=== PATIENT | female | born 1965 | race African-American/Black ===

== ENCOUNTER 2018-11-20 18:33 | Observation (INO) ==
[2018-11-20 19:18] LABS: Basophils % 0.6 % (0.1-2.0); Eosinophils # 0.2 K/mm3 (0.0-0.4); Eosinophils % 2.8 % (0.1-12.0); Hematocrit 37.8 % (37.0-47.0); Hemoglobin 12.4 g/dL (12.2-16.2); Lymphocytes # 2.1 K/mm3 (0.7-4.5); Lymphocytes % 30.1 % (10-50); Mean Corpuscular HGB Conc 32.8 g/dL (31.8-35.4); Mean Corpuscular Volume 89.8 fl (81-99); Mean Platelet Volume 8.8 fl (7.4-10.4); Monocytes # 0.4 K/mm3 (0.1-1.0); Monocytes % 5.6 % (1.7-9.3); Neutrophils # 4.2 K/mm3 (1.8-7.8); Neutrophils % 60.8 % (37.0-80.0); Platelet Count 235 K/mm3 (142-424); Red Blood Count 4.21 M/mm3 (4.20-5.40); White Blood Count 6.9 K/mm3 (4.8-10.8)
[2018-11-20 19:27] LABS: Albumin Level 3.6 gm/dL (3.4-5.0); Anion Gap 16.5 mEq/L (5-15); Bilirubin,Total 0.8 mg/dL (0.2-1.0); Calcium 9.2 mg/dL (8.5-10.1); Globulin 3.6 gm/dl (1.3-3.2); Total Protein,Serum 7.2 gm/dL (6.4-8.2)
--- NOTE | 2018-11-20 19:38 | Emergency Department Note ---
ED Disposition Clinical Impression: Tibial plateau fracture Qualifiers: Encounter type: initial encounter Fracture type: closed Laterality: left Qualified Code(s): S82.142A - Displaced bicondylar fracture of left tibia, initial encounter for closed fracture Disposition: Admitted As Inpatient Condition on Discharge: Fair Referrals: Simona Mckenzie APRN [Primary Care Provider] - - Critical Care Critical Care Time: No Attestation: On 11/20/18, the high probability of a clinically significant, sudden or life threatening deterioration of the following system(s) required my full and direct attention, intervention and personal management. The time I documented below is in addition to time spent performing reported procedures but includes the following listed in this critical care notation. Medical Decision Making - True Inquiry Pt receiving controlled substance: No Vital Signs: 11/20/18 18:31 11/20/18 20:14 Temperature 98.3 F Temperature Source Oral Pulse Rate [Left Brachial] 111 H 105 H Pulse Rate [Right Brachial] 84 Respiratory Rate 18 20 Blood Pressure [Left Arm] 128/71 145/80 H Blood Pressure [Right Arm] 138/71 Blood Pressure Mean [Left Arm] 90 101 Blood Pressure Mean [Right Arm] 93 Blood Pressure Source [Right Arm] Automatic Cuff Blood Pressure Position [Right Arm] Sitting 02 Sat by Pulse Oximetry 95 98 Oxygen Delivery Method Room Air Room Air - Lab Data Lab Results 11/20/18 18:40: WBC 6.9, RBC 4.21, Hgb 12.4, Hct 37.8, MCV 89.8, MCH 29.4, MCHC 32.8, RDW 13.0, Plt Count 235, MPV 8.8, Neut % (Auto) 60.8, Lymph % (Auto) 30.1, [place] % (Auto) 5.6, Eos % (Auto) 2.8, Baso % (Auto) 0.6, Neut # (Auto) 4.2, Lymph # (Auto) 2.1, [place] # (Auto) 0.4, Eos # (Auto) 0.2, Baso # (Auto) 0.0 11/20/18 18:40: Sodium 140, Potassium 3.5, Chloride 102, Carbon Dioxide 25, Anion Gap 16.5 H, BUN 20 H, Creatinine 1.12 H, Estimated Creat Clear 59, Estimated GFR 51 L, Est GFR ( Amer) 62, Glucose 137 H, Calcium 9.2, Total Bilirubin 0.8, AST 33, ALT 38, Alkaline Phosphatase 50, Total Protein 7.2, Albumin 3.6, Globulin 3.6 H, Albumin/Globulin Ratio 1.0 L Result diagrams: 11/20/18 18:40 11/20/18 18:40 - Physician Consults Physician Consulted: Tom Time: 19:50 Reason -: Orthopedic Eval/Care Comment/Response: See if PCP will admit for medical clearance, care epi servin, surgery on Wednesday Additional Consult: John Camp Time: 20:00 Reason -: Admission Comment/Response: Agrees to admit the patient to the hospital. We discussed the patient's clinical information, including history, exam, laboratory and radiology results and ED course. Per hospital procedure, I will write temporary bridge inpatient orders on the patient. Medical Decision Narrative: Discussed treatment plan with Dr. Phoenix and Dr. Min. Logistically, the patient would have to come back tomorrow for orthopedic appointment and also come back on Wednesday for surgery, and has not been able to get in and out of her mmxpir-[id number]'s residence without fire department help and unable to come to the hospital without an ambulance. She will therefore be admitted for medical clearance tomorrow with surgery expected on Wednesday. Care management consult. General Adult HPI - General Chief complaint: PAIN Stated complaint: continued leg pain s/p fall Time Seen by Provider: 11/20/18 19:38 Mode of Arrival: EMS Limitations: No Limitations Description of Symptoms (Recalled from ER Triage Doc. by RN): pt fell on wednesday, was seen in ed and subsequently treated for a tib/fib plateau fx and was supposed to follow with ortho on wednesday. pt's called multiple times that evening asking why we couldn't have just admitted her because due to her size she was unable to navigate fully with crutches. today ems was called for continuing discomfort and decr mobility. - History of Present Illness HPI narrative: Patient arrives by ambulance complaining of left leg swelling and pain. She was seen in this emergency department 2 days ago and diagnosed with a left tibial plateau fracture after a fall. Discharged home on crutches and knee immobilizer and was supposed to see Dr. Phoenix tomorrow for evaluation and to have surgery on Wednesday. Patient has had to move in with her [id number] because her residents had 3 floors. Her sister's residence still has 6 steps getting up into the first level and she has had to call the fire department for assistance getting up and down steps. Her is concerned because she has increased swelling of her legs since she was here. She says that she has pain when she tries to get up and down on crutches and is having quite a bit of difficulty getting back and forth to the bathroom and back into bed. She denies having any pain at rest presently. No numbness or tingling of her foot. - Related Data Home Medications Medication Instructions Recorded Confirmed Ertugliflozin Pidolate [Steglatro] 15 mg PO DAILY 11/18/18 11/20/18 Glimepiride 4 mg PO DAILY 11/18/18 11/20/18 Lisinopril [Lisinopril 5mg 5 mg PO DAILY 11/18/18 11/20/18 Tablet] Metformin HCl [Metformin 1000mg 1,000 mg PO DAILY 11/18/18 11/20/18 Tablets] hydroCHLOROthiazide [HCTZ 25mg 25 mg PO DAILY 11/18/18 11/20/18 tab] Previous Rx's Medication Instructions Recorded Hydrocod/Acet 5/325 mg [[place] 1 tab PO Q6HP PRN #10 tab 11/18/18 5/325mg tablet] Allergies Allergy/AdvReac Type Severity Reaction Status Date / Time No Known Allergies Allergy Verified 11/18/18 22:05 [facility] History - Hepatitis A Screen Drug use history?: No High risk sexual behaviors?: No History of sexually transmitted infection?: No Currently employed?: No Childcare worker?: No Do you have indoor plumbing?: Yes Do you have electricity?: Yes Attestation statement:: This patient has been screened for Hepatitis A risk factors. I have reviewed the patient's past medical history: Yes Medical History: Reports:: Diabetes Mellitus Type 2 - Social History Educational Level: Completed High School Smoking Status: Unknown if ever smoked Alcohol Intake: never Occupational Status: employed Household Members: spouse ROS Obtained: Yes Systems reviewed as appropriate & no additional complaints - Constitutional Constitutional: Denies fever(s) - Musculoskeletal Musculoskeletal: Reports as per HPI - Neurologic Neurologic: Denies numbness, Denies weakness Physical Exam - General General appearance: alert, in no apparent distress - Head Head exam: atraumatic, normocephalic - Eye Eye exam: Present: normal appearance, EOMI - ENT ENT exam: Present: mucous membranes moist - Neck Neck exam: Present: normal inspection, trachea midline - Chest Chest inspection: Present: normal inspection, symmetric chest wall rise - Respiratory Respiratory exam: Present: normal lung sounds bilaterally. Absent: respiratory distress - Cardiovascular Cardiovascular exam: Present: regular rate, normal rhythm, normal heart sounds - Abdominal Exam Abdominal exam: Present: soft - Extremities Exam Extremities exam: Present: normal capillary refill - Neurological Exam Neurological exam: Present: alert, oriented X3. Absent: motor sensory deficit - Psychiatric Psychiatric exam: Present: normal affect, normal mood - Skin Skin exam: Present: warm, dry - Other Other exam information: Left knee immobilizer is on, but approximately it only extends to the suprapatellar area distally goes down to her ankle. It is it is not really immobilizing her knee. Mild edema of left knee and leg. Minimal ecchymosis around the lateral aspect of the knee. Tenderness in that location as well as the proximal pretibial area. Normal pulses, capillary refill, sensation distally. Calf is soft. All muscle compartments are soft. She can wiggle her toes and dorsiflex and plantar flex the foot without any pain. She is having no pain at rest as long as it is not touched. No signs of compartment syndrome. Skin is intact.
--- NOTE | 2018-11-21 07:05 | History & Physical Report ---
*Admission Date: 11/20/18 *Chief complaint: Left leg pain *History of present illness: 53-year-old female with diabetes and hypertension presented to the emergency department again yesterday with left leg pain. Patient had been seen 2 days prior and diagnosed with a tibial plateau fracture. At that time orthopedic evaluation had been arranged. Patient returned yesterday because of difficulties getting to and from home. Patient struggled with use of crutches and her knee immobilizer. She return to the emergency department and was subsequently admitted for observation with planned surgery on Wednesday. [facility] History I have reviewed the patient's past medical history: Yes Medical History: Reports:: Diabetes Mellitus Type 2, Hypertension Denies:: Cancer, MRSA *Have you ever received a pneumonia vaccine?: No *Have you received a flu vaccine this season?: No Other Medical History: Reports: Arthritis Other Surgeries: Yes: Hysterectomy-Partial, Other (Csection) Amputation: No Fractures: Yes (tibia) - *Social History Educational Level: Attended College Smoking Status: Unknown if ever smoked Alcohol Intake: never *Occupational Status:: employed Household Members: spouse *Travel in the last 8 weeks: None Family Hx:: Hypertension Review of Systems - Constitutional Denies body ache(s), Denies chills, Denies fever(s), Denies lack of energy - ENT Denies abnormal hearing - *Cardiovascular Denies chest pain, Denies chest pain at rest, Denies chest pain with activity, Denies excessive sweating, Denies shortness of breath with activity - *Respiratory Denies chest congestion, Denies cough, Denies shortness of breath - *Gastrointestinal Denies abdominal pain - *Musculoskeletal Reports abnormal walking - *Neurologic Reports abnormal walking, Denies numbness, Denies weakness - Endocrine Denies cold intolerance - Hematologic/Lymphatic Denies easy bleeding, Denies easy bruising Meds Home Medications Medication Instructions Recorded Confirmed Type Ertugliflozin Pidolate [Steglatro] 15 mg PO DAILY 11/18/18 11/20/18 History Glimepiride 4 mg PO DAILY 11/18/18 11/20/18 History Hydrocod/Acet 5/325 mg [[place] 1 tab PO Q6HP PRN #10 tab 11/18/18 11/20/18 Rx 5/325mg tablet] Lisinopril [Lisinopril 5mg 5 mg PO DAILY 11/18/18 11/20/18 History Tablet] Metformin HCl [Metformin 1000mg 1,000 mg PO DAILY 11/18/18 11/20/18 History Tablets] hydroCHLOROthiazide [HCTZ 25mg 25 mg PO DAILY 11/18/18 11/20/18 History tab] Allergies Allergy/AdvReac Type Severity Reaction Status Date / Time No Known Allergies Allergy Verified 11/18/18 22:05 Exam Vital signs and Labs for Last 24 Hours: Temp Pulse Resp BP Pulse Ox 98.2 F 98 H 18 134/92 H 98 11/21/18 03:48 11/21/18 03:48 11/21/18 03:48 11/21/18 03:48 11/21/18 03:48 Laboratory Results - last 24 hr 11/20/18 18:40: WBC 6.9, RBC 4.21, Hgb 12.4, Hct 37.8, MCV 89.8, MCH 29.4, MCHC 32.8, RDW 13.0, Plt Count 235, MPV 8.8, Neut % (Auto) 60.8, Lymph % (Auto) 30.1, [place] % (Auto) 5.6, Eos % (Auto) 2.8, Baso % (Auto) 0.6, Neut # (Auto) 4.2, Lymph # (Auto) 2.1, [place] # (Auto) 0.4, Eos # (Auto) 0.2, Baso # (Auto) 0.0 11/20/18 18:40: Sodium 140, Potassium 3.5, Chloride 102, Carbon Dioxide 25, Anion Gap 16.5 H, BUN 20 H, Creatinine 1.12 H, Estimated Creat Clear 59, Estimated GFR 51 L, Est GFR ( Amer) 62, Glucose 137 H, Calcium 9.2, Total Bilirubin 0.8, AST 33, ALT 38, Alkaline Phosphatase 50, Total Protein 7.2, Albumin 3.6, Globulin 3.6 H, Albumin/Globulin Ratio 1.0 L I & O for Last 24 hours: Intake & Output 11/18/18 11/19/18 11/20/18 11/21/18 11:59 11:59 11:59 11:59 Output Total 350 / 350 Balance -350 / -350 Weight 255 lb 5 oz - Constitutional no acute distress - *Routine HEENT Exam Head: Present: normocephalic Eye: Present: PERRL ENT: Present: mucous membranes dry - *Routine Neck Exam Present: supple, full ROM. Absent: JVD, carotid bruit - *Routine Respiratory Exam Present: CTA bilaterally. Absent: rales, rhonchi, wheezes - *Routine Cardiovascular Exam Present: RRR, Normal S1, Normal S2. Absent: murmur - *Routine Abdominal Exam Present: soft, normoactive bowel sounds. Absent: tenderness, distended, rebound - *Routine Extremities Exam Present: edema, pulses intact Comments: Left knee immobilized. Intact range of motion in the left ankle. Sensation intact in the left foot. Palpable pulse in left foot Assessment and Plan (1) Tibial plateau fracture, left Current visit: No Status: Acute Qualifiers: Encounter type: subsequent encounter Fracture type: closed Qualified Code(s): S82.142A - Displaced bicondylar fracture of left tibia, initial encounter for closed fracture Category: Medical Code(s): S82.142A - Displaced bicondylar fracture of left tibia, initial encounter for closed fracture (2) Diabetes mellitus Current visit: Yes Status: Acute Qualifiers: Diabetes mellitus type: type 2 Diabetes mellitus longterm insulin use: without watermelon inspector use Diabetes mellitus complication status: without complication Qualified Code(s): E11.9 - Type 2 diabetes mellitus without complications Category: Medical Code(s): E11.9 - Type 2 diabetes mellitus without complicati ons (3) Hypertension Current visit: Yes Status: Acute Qualifiers: Hypertension type: essential hypertension Qualified Code(s): I10 - Essential (primary) hypertension Category: Medical Code(s): I10 - Essential (primary) hypertension - Assessment and plan all Dx Assessment and Plan for all problems:: 1. EKG this morning 2. Lovenox 40 mg subcu daily for DVT prophylaxis 3. Patient is low cardiac risk for perioperative complications. 4. Home medications ordered
--- NOTE | 2018-11-21 07:27 | Pharmacy Consult Notes ---
[facility] Pharmacy VTE Monitoring - Patient Demographics Admission date: 11/20/18 Report Date: 11/21/18 Time: 07:27 Allergies/Adverse Reactions: Patient Allergies No Known Allergies Allergy (Verified 11/18/18 22:05) Height: 1.73 m Weight: 115.808 kg Patient Problems: Current Active Problems Tibial plateau fracture (Acute) Diabetes mellitus (Acute) Hypertension (Acute) - VTE Risk Labs: VTE Related Lab Results Hgb 12.4 g/dL (12.2-16.2) 11/20/18 18:40 Hct 37.8 % (37.0-47.0) 11/20/18 18:40 Plt Count 235 K/mm3 (142-424) 11/20/18 18:40 BUN 20 mg/dL (7-18) H 11/20/18 18:40 Creatinine 1.12 mg/dL (0.55-1.02) H 11/20/18 18:40 Estimated Creat Clear 59 mL/min (50-200) 11/20/18 18:40 Was VTE Risk Assessment Performed: Yes VTE Score: 3 VTE Risk Level: Low Risk - Prophylaxis VTE Prophylaxis Ordered?: Yes Types of VTE Prophylaxis: Pharmacological Pharmacologic Type: Enoxaparin - VTE Diagnosis Confirmed Treatment or plan recommended: Continue Current Treatment
--- NOTE | 2018-11-21 13:21 | Consult Report ---
*Admission Date: 11/20/18 *Reason for consult:: L tibial plateau fracture *History of present illness: 53-year-old female who sustained an injury to the L lower extremity on 11/18/2018 when she fell from a standing height. She was seen in the ER that evening, where a tibial plateau fracture was diagnosed on x-ray. I was notified at that time, and outpatient follow-up on 11/21/[address] scan was performed of the L knee per my request, and she was placed into an immobilizer and given crutches. She returned to the ER last night for complaints of persistent pain and increased swelling in the leg, in addition to difficulty with mobilization at home. She has been staying with a cannzy-vc-skj, whose home is more accessible than her own, but is still having difficulty with transportation. An ambulance had to be called to transport her to the hospital last night, and EMS personnel were needed to extricate her from the home. She reports pain over the lateral aspect of the L knee, no back/hip/ankle pain, no numbness or tingling in the LLE. She has been seen in the past by the lymphedema clinic per the patient, but it is unclear if she's been diagnosed with lymphedema or not. She works at [employer] and is sitting for most of her work. Review of Systems - Review of Systems Review of systems:: pertinent systems reviewed and negative unless documented below - *Neurologic Reports abnormal walking, Denies abnormal hearing, Denies numbness, Denies weakness [facility] History I have reviewed the patient's past medical history: Yes Medical History: Reports:: Diabetes Mellitus Type 2, Hypertension Denies:: Cancer, MRSA *Have you ever received a pneumonia vaccine?: No *Have you received a flu vaccine this season?: No Other Medical History: Reports: Arthritis Other Surgeries: Yes: Hysterectomy-Partial, Other (Csection) Amputation: No Fractures: Yes (tibia) - *Social History Educational Level: Attended College Smoking Status: Unknown if ever smoked Alcohol Intake: never *Occupational Status:: employed Household Members: spouse *Travel in the last 8 weeks: None Family Hx:: Hypertension Meds Home Medications Medication Instructions Recorded Confirmed Type Ertugliflozin Pidolate [Steglatro] 15 mg PO DAILY 11/18/18 11/20/18 History Glimepiride 4 mg PO DAILY 11/18/18 11/20/18 History Hydrocod/Acet 5/325 mg [[place] 1 tab PO Q6HP PRN #10 tab 11/18/18 11/20/18 Rx 5/325mg tablet] Lisinopril [Lisinopril 5mg 5 mg PO DAILY 11/18/18 11/20/18 History Tablet] Metformin HCl [Metformin 1000mg 1,000 mg PO BID 11/18/18 11/21/18 History Tablets] hydroCHLOROthiazide [HCTZ 25mg 25 mg PO DAILY 11/18/18 11/20/18 History tab] Allergies Allergy/AdvReac Type Severity Reaction Status Date / Time No Known Allergies Allergy Verified 11/18/18 22:05 Exam Vital signs and Labs for Last 24 Hours: Temp Pulse Resp BP Pulse Ox 98.7 F 107 H 18 131/82 98 11/21/18 07:46 11/21/18 07:46 11/21/18 07:46 11/21/18 07:46 11/21/18 07:46 Laboratory Results - last 24 hr 11/20/18 18:40: WBC 6.9, RBC 4.21, Hgb 12.4, Hct 37.8, MCV 89.8, MCH 29.4, MCHC 32.8, RDW 13.0, Plt Count 235, MPV 8.8, Neut % (Auto) 60.8, Lymph % (Auto) 30.1, [place] % (Auto) 5.6, Eos % (Auto) 2.8, Baso % (Auto) 0.6, Neut # (Auto) 4.2, Lymph # (Auto) 2.1, [place] # (Auto) 0.4, Eos # (Auto) 0.2, Baso # (Auto) 0.0 11/20/18 18:40: Sodium 140, Potassium 3.5, Chloride 102, Carbon Dioxide 25, Anion Gap 16.5 H, BUN 20 H, Creatinine 1.12 H, Estimated Creat Clear 59, Estimated GFR 51 L, Est GFR ( Amer) 62, Glucose 137 H, Calcium 9.2, Total Bilirubin 0.8, AST 33, ALT 38, Alkaline Phosphatase 50, Total Protein 7.2, Albumin 3.6, Globulin 3.6 H, Albumin/Globulin Ratio 1.0 L 11/21/18 11:22: POC Glucose 78 I & O for Last 24 hours: Intake & Output 11/19/18 11/20/18 11/21/18 11/22/18 11:59 11:59 11:59 11:59 Intake Total 360 / 360 Output Total 350 / 350 Balance Weight 255 lb 5 oz - Constitutional no acute distress, morbidly obese - *Routine HEENT Exam Head: Present: normocephalic Eye: Present: EOMI ENT: Present: mucous membranes moist - *Routine Respiratory Exam Present: CTA bilaterally - *Routine Cardiovascular Exam Present: RRR - *Routine Abdominal Exam Present: soft. Absent: tenderness - *Routine Extremities Exam Comments: LLE no gross deformity, knee immobilizer in place significantly tender over the lateral aspect of L knee, particularly L proximal tibia no skin lesions: no ecchymosis, abrasions, lacerations or erythema L calf soft, non-tender +DF/PF/EHL LLE palpable pedal pulses LLE SILT distally LLE in all distributions - *Routine Skin Exam Present: intact. Absent: erythema, ecchymosis - *Routine Neurological Exam Present: alert, oriented X3, moving all extremities, normal tone, hearing grossly intact, normal speech. Absent: sensory deficit, motor deficit, altered mental status Results - Labs Result Diagrams: 11/20/18 18:40 11/20/18 18:40 Labs: Abnormal lab results 11/20/18 Range/Units 18:40 Anion Gap 16.5 H (5-15) mEq/L BUN 20 H (7-18) mg/dL Creatinine 1.12 H (0.55-1.02) mg/dL Estimated GFR 51 L (>60) ml/min Glucose 137 H (74-106) mg/dL Globulin 3.6 H (1.3-3.2) gm/dl Albumin/Globulin Ratio 1.0 L (1.1-1.8) H & H 11/20/18 Range/Units 18:40 Hgb 12.4 (12.2-16.2) g/dL Hct 37.8 (37.0-47.0) % All other labs normal. - Diagnostic results Knee x-ray: image reviewed (mildly displaced lateral tibial plateau fx L proximal tibia) Knee CT: image reviewed (L lateral tibial plateau fx ) Assessment and Plan (1) Tibial plateau fracture, left Current visit: No Status: Acute Qualifiers: Encounter type: subsequent encounter Fracture type: closed Qualified Code(s): S82.142A - Displaced bicondylar fracture of left tibia, initial encounter for closed fracture Category: Medical Code(s): S82.142A - Displaced bicondylar fracture of left tibia, initial encounter for closed fracture (2) Diabetes mellitus Current visit: Yes Status: Acute Qualifiers: Diabetes mellitus type: type 2 Diabetes mellitus local intermodal truck driver insulin use: without local intermodal truck driver use Diabetes mellitus complication status: without complication Qualified Code(s): E11.9 - Type 2 diabetes mellitus without complications Category: Medical Code(s): E11.9 - Type 2 diabetes mellitus without complications (3) Hypertension Current visit: Yes Status: Acute Qualifiers: Hypertension type: essential hypertension Qualified Code(s): I10 - Essential (primary) hypertension Category: Medical Code(s): I10 - Essential (primary) hypertension - Assessment and plan all Dx Assessment and Plan for all problems:: 53yo F with L tibial plateau fracture; Schatzker II -- NWB LLE, up ad melissa with assistance -- elevate LLE, ice L knee frequently -- to OR tomorrow for ORIF L tibial plateau fracture -- will have PT assess; patient has difficulty with crutches, would like them to work on crutch training + fit patient for T-scope brace, which she will need post-operatively. Will also have them assess post-op for placement needs. -- ok to give lovenox today, but hold tonight for OR tomorrow -- SCD RLE, encourage IS -- medical management/clearance per Dr. Camp
--- NOTE | 2018-11-22 07:03 | Progress Note ---
Internal Medicine - PN: Subj *Date: 11/22/18 *Time: 07:00 Interval history: Patient has no complaints this morning. She worked with physical therapy yesterday to ambulate with a walker. Pain is controlled. She denies chest pain or shortness of breath Exam Vital signs and Labs for Last 24 Hours: Temp Pulse Resp BP Pulse Ox 98.6 F 84 16 136/79 94 L 11/22/18 04:00 11/22/18 04:00 11/22/18 04:00 11/22/18 04:00 11/22/18 04:00 Laboratory Results - last 24 hr 11/21/18 11:22: POC Glucose 78 11/21/18 16:36: POC Glucose 89 11/21/18 20:26: POC Glucose 81 11/22/18 06:03: POC Glucose 74 I & O for Last 24 hours: Intake & Output 11/19/18 11/20/18 11/21/18 11/22/18 11:59 11:59 11:59 11:59 Intake Total 360 / 360 480 / 480 Output Total 350 / 350 900 / 900 Balance -420 / -420 Weight 255 lb 5 oz 255 lb 7 oz Narrative: Patient is awake and alert and in no distress. Lungs are clear to auscultation. Heart has a regular rate and rhythm. Abdomen is soft and nontender. EKG performed yesterday showed a sinus tachycardia but no evidence of ischemia, infarct or previous injury. Assessment and Plan (1) Tibial plateau fracture, left Current visit: No Status: Acute Qualifiers: Encounter type: subsequent encounter Fracture type: closed Qualified Code(s): S82.142A - Displaced bicondylar fracture of left tibia, initial encounter for closed fracture Category: Medical Code(s): S82.142A - Displaced bicondylar fracture of left tibia, initial encounter for closed fracture (2) Diabetes mellitus Current visit: Yes Status: Acute Qualifiers: Diabetes mellitus type: type 2 Diabetes mellitus frame carver spindle insulin use: without frame carver spindle use Diabetes mellitus complication status: without complication Qualified Code(s): E11.9 - Type 2 diabetes mellitus without complications Category: Medical Code(s): E11.9 - Type 2 diabetes mellitus without complications (3) Hypertension Current visit: Yes Status: Acute Qualifiers: Hypertension type: essential hypertension Qualified Code(s): I10 - Essential (primary) hypertension Category: Medical Code(s): I10 - Essential (primary) hypertension - Assessment and plan all Dx Assessment and Plan for all problems:: 1. Patient is scheduled for surgery this morning and from a medical standpoint is below risk for perioperative cardiac complications. Surgery may proceed. 2. Continue home medications. Hold Lovenox this morning. 3. Discharge plan per orthopedic service.
[2018-11-22 07:06] LABS: Basophils % 0.8 % (0.1-2.0); Eosinophils # 0.3 K/mm3 (0.0-0.4); Eosinophils % 5.3 % (0.1-12.0); Hematocrit 36.1 % (37.0-47.0); Hemoglobin 11.7 g/dL (12.2-16.2); Lymphocytes # 1.4 K/mm3 (0.7-4.5); Lymphocytes % 27.7 % (10-50); Mean Corpuscular HGB Conc 32.5 g/dL (31.8-35.4); Mean Platelet Volume 9.8 fl (7.4-10.4); Monocytes # 0.3 K/mm3 (0.1-1.0); Monocytes % 6.7 % (1.7-9.3); Neutrophils % 59.5 % (37.0-80.0); Platelet Count 215 K/mm3 (142-424); Red Blood Count 4.01 M/mm3 (4.20-5.40); Red Cell Distribution Width 12.7 % (11.5-17.5)
[2018-11-22 07:17] LABS: INR 0.97 (0.9-1.1); Prothrombin Time 10.1 seconds (9.4-11.8)
--- NOTE | 2018-11-22 12:04 | Progress Note ---
[facility] Anesthesia Checklist - Patient Identification Patient Identification: Arm Band - Structural Data Admitted From: Inpatient Planned Operative Procedure/s: orif left tibial plateau fracture Consent for Planned Operative Procedure(s) Verified: Yes Verified Documents: Surgical Consent, History and Physical - NPO Status Verified Time NPO: 00:00 - Additional verifications Anesthesia Reactions: No - Airway Assessment C-Spine Mobility Assessed: Yes (mp2) TMJ Mobility Assessed: Yes Dentition: Good Dentition - Neurological Assessment Level of Consciousness: Awake, Alert - Anesthesia Plan Anesthesia Risk discussed: Yes Anesthesia Plan: Verified ASA Class: III Anesthesia Type: General [facility] History I have reviewed the patient's past medical history: Yes Medical History: Reports:: Diabetes Mellitus Type 2, Hypertension Denies:: Cancer, MRSA *Have you ever received a pneumonia vaccine?: No *Have you received a flu vaccine this season?: No Other Medical History: Reports: Arthritis Anesthesia experience/problems:: nac Other Surgeries: Yes: , Hysterectomy-Partial Amputation: No Fractures: Yes (tibia) - *Social History Educational Level: Attended College Smoking Status: Unknown if ever smoked Alcohol Intake: never Substance Use Type: denies use *Occupational Status:: employed Household Members: spouse *Travel in the last 8 weeks: None Family Hx:: Hypertension
--- NOTE | 2018-11-22 13:10 | Electrocardiograph Report ---
APPROVED REPORT Exam: Resting ECG HR:111 bpm ECG Measurements Heart Rate 111 AXES DC 144 P 53 QRSd 88 QRS -7 QT 336 T100 QTc 456 <Conclusion> Sinus tachycardia Nonspecific ST-T wave abnormalities Abnormal ECG Electronically signed by : Rafael Genao, 11/22/2018 13:10:05
--- NOTE | 2018-11-22 16:32 | Progress Note ---
[facility] Anesthesia Record Part I Intake, IV Amount: 1,900 Estimated blood loss (mL): 50 Urine output (mL): 500 Blood Pressure: 119/82 SaO2: 95 Pulse Rate: 93 Respiratory Rate: 16 Temperature: 99.1 F Patient is:: Drowsy, Stable Stable to PACU at:: 16:25
--- NOTE | 2018-11-22 16:32 | Progress Note ---
[facility] Anesthesia Record Part II Discharge Time: 16:55 Destination: 2nd floor PACU nurse assessment reviewed?: Yes Patient Condition:: Good Anesthesia Complications:: None Swallowing reflex intact?: Yes Cyanosis?: No
--- NOTE | 2018-11-22 18:15 | Operative Note ---
Date of procedure: 11/22/18 Pre-op Diagnosis:: LEFT tibial plateau fracture, Schatzker II Post-op Diagnosis:: LEFT tibial plateau fracture, Schatzker II Procedure performed:: ORIF L tibial plateau fracture Surgeon:: Lucia Santos MD Information Systems Coordinator(s):: Eli Blake MANAGER [employer] SCIENC[employer]:: Cruz Devi Anesthesia: GETA, local (30cc 0.5% marcaine) Estimated blood loss (mL): 50 Clinical Note:: 53-year-old female who sustained an injury to the L lower extremity on 11/18/2018 when she fell from a standing height. She was seen in the ER that evening, where a tibial plateau fracture was diagnosed on x-ray. I was notified at that time, and outpatient follow-up on 11/21/[address] scan was performed of the L knee per my request, and she was placed into an immobilizer and given crutches. She returned to the ER last night for complaints of persistent pain and increased swelling in the leg, in addition to difficulty with mobilization at home. She has been staying with a [id number]-ke-nlk, whose home is more accessible than her own, but is still having difficulty with transportation. An ambulance had to be called to transport her to the hospital last night, and EMS personnel were needed to extricate her from the home. She reports pain over the lateral aspect of the L knee, no back/hip/ankle pain, no n umbness or tingling in the LLE. She has been seen in the past by the lymphedema clinic per the patient, but it is unclear if she's been diagnosed with lymphedema or not. She works at [employer] ([place]) and is sitting for most of her work. I discussed treatment options with the patient and we have agreed to proceed with open reduction internal fixation of the left tibial plateau fracture. I discussed the risks of the procedure, including bleeding, infection, neurovascular damage, nonunion, malunion, posttraumatic arthritis, persistent knee pain, and need for further surgery in the future, as well as the risks of anesthesia. The patient vocalized understanding and provided informed consent. She was evaluated medically cleared by Dr. Camp. Operative findings:: left tibial plateau fracture implants = Maupin VariAx lateral tibial plateau locking plate; details of fixation within body of report Operative note:: The patient was identified in preoperative holding and the left knee signed by myself. Operative consent was reviewed with the patient and all questions answered. She was then evaluated by anesthesia transferred to the operating r oom. The patient was placed supine on the OR table and general anesthesia induced; prior to induction 2g Ancef were infused. The left lower extremity was then prepped and draped in the usual sterile fashion for ORIF of the proximal tibia using a non-sterile tourniquet on the upper thigh. Timeout was performed, identifying the correct patient, correct procedure, and correct site. The procedure was begun by first exsanguinating the left lower extremity and elevating the tourniquet to 300 mmHg. A curvilinear, longitudinal incision was then made over the lateral aspect of the left knee, centered over the joint line and extending distally along the tibial shaft. Skin was incised with a 10 blade and subcutaneous tissue bluntly dissected with metzenbaum scissors. The anterior compartment musculature was peeled down off of the anterolateral tibia, exposing the fracture site. This was extended proximally and sub-meniscal arthrotomy performed. As soon as the arthrotomy was performed, a moderate hemarthrosis emerged from the joint. The articular surface was examined and a small area of depression noted, corresponding to the depression region on CT; this was depressed around 3mm. Spearfish was inserted into the fracture site distally and used to elevate and open the fracture site laterally. A freer elevator was used to elevate the depressed articular fragment until the joint surface was congruent. The lateral fracture fragment was then reduced and subchondral bone pinned with a series of K wires to maintain the reduction. Reduction was then confirmed to be satisfactory on C arm on both AP and lateral views. There was a very small metaphyseal void left after the depressed fragment was reduced; this was addressed later in the case. The reduction was then secured with a Luiz AxSpace Apes proximal tibial plate. A left-sided lateral proximal tibial plate was applied and secured with a series of both locking and nonlocking screws. First, a nonlocking 3.5 mm cortical screw was placed in the oblong hole securing the plate to the bone; this was 36mm long. This was followed by a series of raft screws supporting the subchondral bone and the articular surface. 3 locking screws were then placed, 4.0 mm diameter and measuring 75 mm, 80 mm, and 70 mm long. This was followed by a 75 mm locking screw in the next distalmost hole. A 65 mm long locking screw was placed in the kickstand hole and a nonlocking 3.5 mm cortical screw was placed in the distal-most hole of the shaft, measuring 36mm long. To finalize the fixation, one additional non-locking screw was placed in the middle of the plate, beneath the raft screws and proximal to the kickstand. The inferior portion of the lateral fracture fragment wasn't quite sitting down where I wanted it, so one additional screw was added through the bone only, outside/inferior to the plate, fully-threaded non-locking screw placed bicortically, 3.5 x 75mm in size. Once the fixation was finalized, a drill was used to perforate the lateral cortex through an empty screw hole, and the small metaphyseal void filled with Hydroset. The arthrotomy/meniscus was repaired with ethibond sutures tied into the plate. This concluded the procedure and the wound was irrigated, tourniquet dropped and hemostasis obtained with electrocautery. The wound was then closed in a layered fashion with 0 Vicryl, 2-0 Vicryl and anabell on the skin. Given the large size of the patient's leg, the dissection involved and her history of lymphedema, a small wound drain was placed and wrapped into her dressings; this was a hemovac and the plan is to removed it tomorrow. Sterile dressings were applied and the leg wrapped with a compressive dressing; knee immobilizer was reapplied. The patient was then extubated and transferred to PACU in good condition. There were no complications during this case. Tourniquet time (min): 120 Condition: stable Disposition: PACU Specimens:: none Complications:: none
--- NOTE | 2018-11-23 06:23 | Progress Note ---
Internal Medicine - PN: Subj *Date: 11/23/18 *Time: 06:21 Interval history: Patient complains of pain this morning. She has not been out of bed since surgery. She denies chest pain or shortness of breath. Exam Vital signs and Labs for Last 24 Hours: Temp Pulse Resp BP Pulse Ox 99.0 F 106 H 20 163/91 H 100 11/23/18 04:30 11/23/18 04:30 11/23/18 04:30 11/23/18 04:30 11/23/18 04:30 Laboratory Results - last 24 hr 11/22/18 06:53: WBC 5.0 D, RBC 4.01 L, Hgb 11.7 L, Hct 36.1 L, MCV 90.0, MCH 29.3, MCHC 32.5, RDW 12.7, Plt Count 215, MPV 9.8, Neut % (Auto) 59.5, Lymph % (Auto) 27.7, [place] % (Auto) 6.7, Eos % (Auto) 5.3, Baso % (Auto) 0.8, Neut # (Auto) 3.0, Lymph # (Auto) 1.4, [place] # (Auto) 0.3, Eos # (Auto) 0.3, Baso # (A uto) 0.0 11/22/18 06:53: Sodium 138, Potassium 4.0, Chloride 101, Carbon Dioxide 28, Anion Gap 13.0, BUN 15, Creatinine 0.87 D, Estimated Creat Clear 137, Estimated GFR 68, Est GFR ( Amer) 82 D, Glucose 81, Calcium 9.0 11/22/18 06:53: PT 10.1, INR 0.97 11/22/18 10:59: POC Glucose 59 L 11/22/18 11:51: POC Glucose 99 11/22/18 12:50: Urine Color Yellow, Urine Appearance Clear, Urine pH 5.0, Ur Specific [place] >= 1.030, Urine Protein Negative, Urine Glucose (UA) 3+, Urine Ketones 2+, Urine Blood Negative, Urine Nitrate Negative, Urine Bilirubin Negative, Urine Urobilinogen 0.2, Ur Leukocyte Esterase Negative, Urine RBC Occasional, Urine WBC Occasional, Ur Squamous Epith Cells Occasional, Urine Bacteria Trace 11/22/18 16:33: POC Glucose 122 H 11/22/18 21:40: POC Glucose 137 H 11/23/18 05:37: POC Glucose 100 I & O for Last 24 hours: Intake & Output 11/20/18 11/21/18 11/22/18 11/23/18 11:59 11:59 11:59 11:59 Intake Total 360 / 360 480 / 480 3230 / 3230 Output Total 350 / 350 900 / 900 350 / 350 Balance -420 / -420 2880 / 2880 Weight 255 lb 5 oz 255 lb 7 oz 251 lb 1 oz Narrative: Patient is in no distress. Lungs are clear to auscultation. Heart is tachycardic. Abdomen is soft. Left leg is immobilized. She is neurovascularly intact in the foot. Assessment and Plan (1) Tibial plateau fracture, left Current visit: No Status: Acute Qualifiers: Encounter type: subsequent encounter Fracture type: closed Qualified Code(s): S82.142A - Displaced bicondylar fracture of left tibia, initial encounter for closed fracture Category: Medical Code(s): S82.142A - Displaced bicondylar fracture of left tibia, initial encounter for closed fracture (2) Diabetes mellitus Current visit: Yes Status: Acute Qualifiers: Diabetes mellitus type: type 2 Diabetes mellitus intermediate school teacher insulin use: without long-term use Diabetes mellitus complication status: without complication Qualified Code(s): E11.9 - Type 2 diabetes mellitus without complications Category: Medical Code(s): E11.9 - Type 2 diabetes mellitus without complications (3) Hypertension Current visit: Yes Status: Acute Qualifiers: Hypertension type: essential hypertension Qualified Code(s): I10 - Essential (primary) hypertension Category: Medical Code(s): I10 - Essential (primary) hypertension - Assessment and plan all Dx Assessment and Plan for all problems:: Patient discharged today. Await orthopedic evaluation this morning.
--- NOTE | 2018-11-23 06:25 | Discharge Summary ---
General - General Admission date:: 11/20/18 Discharge date: 11/23/18 HPI HPI: 53-year-old female with diabetes and hypertension presented to the emergency department again yesterday with left leg pain. Patient had been seen 2 days prior and diagnosed with a tibial plateau fracture. At that time orthopedic evaluation had been arranged. Patient returned yesterday because of difficulties getting to and from home. Patient struggled with use of crutches and her knee immobilizer. She return to the emergency department and was subsequently admitted for observation with planned surgery on Wednesday. Hospital Course Hospital Course: Patient was admitted. On the she underwent orthopedic evaluation and was scheduled for surgery on the . On the patient underwent ORIF of left tibial plateau fracture by Dr. Phoenix. PT worked with the patient on ambulating with a walker. On November 23 patient was discharged to home. She will be staying with a relative while she recuperates Objective Vital signs: Temp Pulse Resp BP Pulse Ox 99.0 F 106 H 20 163/91 H 100 11/23/18 04:30 11/23/18 04:30 11/23/18 04:30 11/23/18 04:30 11/23/18 04:30 Results Labs on day of discharge: Labs from last 24 hours 11/23/18 11/22/18 11/22/18 05:37 21:40 16:33 WBC RBC Hgb Hct MCV MCH MCHC RDW Plt Count MPV Neut % (Auto) Lymph % (Auto) [place] % (Auto) Eos % (Auto) Baso % (Auto) Neut # (Auto) Lymph # (Auto) [place] # (Auto) Eos # (Auto) Baso # (Auto) PT INR Sodium Potassium Chloride Carbon Dioxide Anion Gap BUN Creatinine Estimated Creat Clear Estimated GFR Est GFR ( Amer) Glucose POC Glucose 100 137 H 122 H Calcium Urine Color Urine Appearance Urine pH Ur Specific [place] Urine Protein Urine Glucose (UA) Urine Ketones Urine Blood Urine Nitrate Urine Bilirubin Urine Urobilinogen Ur Leukocyte Esterase Urine RBC Urine WBC Ur Squamous Epith Cells Urine Bacteria 11/22/18 11/22/18 11/22/18 12:50 11:51 10:59 WBC RBC Hgb Hct MCV MCH MCHC RDW Plt Count MPV Neut % (Auto) Lymph % (Auto) [place] % (Auto) Eos % (Auto) Baso % (Auto) Neut # (Auto) Lymph # (Auto) [place] # (Auto) Eos # (Auto) Baso # (Auto) PT INR Sodium Potassium Chloride Carbon Dioxide Anion Gap BUN Creatinine Estimated Creat Clear Estimated GFR Est GFR ( Amer) Glucose POC Glucose 99 59 L Calcium Urine Color Yellow Urine Appearance Clear Urine pH 5.0 Ur Specific [place] >= 1.030 Urine Protein Negative Urine Glucose (UA) 3+ Urine Ketones 2+ Urine Blood Negative Urine Nitrate Negative Urine Bilirubin Negative Urine Urobilinogen 0.2 Ur Leukocyte Esterase Negative Urine RBC Occasional Urine WBC Occasional Ur Squamous Epith Cells Occasional Urine Bacteria Trace 11/22/18 11/22/18 11/22/18 06:53 06:53 06:53 WBC 5.0 D RBC 4.01 L Hgb 11.7 L Hct 36.1 L MCV 90.0 MCH 29.3 MCHC 32.5 RDW 12.7 Plt Count 215 MPV 9.8 Neut % (Auto) 59.5 Lymph % (Auto) 27.7 [place] % (Auto) 6.7 Eos % (Auto) 5.3 Baso % (Auto) 0.8 Neut # (Auto) 3.0 Lymph # (Auto) 1.4 [place] # (Auto) 0.3 Eos # (Auto) 0.3 Baso # (Auto) 0.0 PT 10.1 INR 0.97 Sodium 138 Potassium 4.0 Chloride 101 Carbon Dioxide 28 Anion Gap 13.0 BUN 15 Creatinine 0.87 D Estimated Creat Clear 137 Estimated GFR 68 Est GFR ( Amer) 82 D Glucose 81 POC Glucose Calcium 9.0 Urine Color Urine Appearance Urine pH Ur Specific [place] Urine Protein Urine Glucose (UA) Urine Ketones Urine Blood Urine Nitrate Urine Bilirubin Urine Urobilinogen Ur Leukocyte Esterase Urine RBC Urine WBC Ur Squamous Epith Cells Urine Bacteria DS: Diagnosis - Discharge Diagnosis (1) Tibial plateau fracture, left Status: Acute (2) Diabetes mellitus Status: Acute (3) Hypertension Status: Acute Discharge Plan - Patient Discharge Instructions ACTIVITY: Continue current activity DIET: continue same diet Additional Instructions: -- detailed discharge instruction handout given; NWB LLE Patient Instructions: Fracture, DI for Fracture, DI for Open Reduction Internal Fixation Surgery, DI for Surgical Site Infection, Surgical Site Infection, DI for Tibial Plateau Fracture - Follow up Plan Follow up with: Lucia Santos MD [Physician] - 11/28/18 1:45 pm Disposition: Home, Self-Mcc Medications: Home Medications Medication Instructions Recorded Confirmed Type Ertugliflozin Pidolate [Steglatro] 15 mg PO DAILY 11/18/18 11/20/18 History Glimepiride 4 mg PO DAILY 11/18/18 11/20/18 History Lisinopril [Lisinopril 5mg 5 mg PO DAILY 11/18/18 11/20/18 History Tablet] Metformin HCl [Metformin 1000mg 1,000 mg PO BID 11/18/18 11/21/18 History Tablets] hydroCHLOROthiazide [HCTZ 25mg 25 mg PO DAILY 11/18/18 11/20/18 History tab] Aspirin [Aspirin 325mg Tab] 325 mg PO DAILY #30 tab 11/23/18 Rx Oxycodone HCl/Acetaminophen 1 tab PO Q6H PRN #30 tab 11/23/18 Rx [Percocet 5/325mg tablet] Prescriptions/Medication Reconciliation: New Aspirin [Aspirin 325mg Tab] 325 mg PO DAILY #30 tab Oxycodone HCl/Acetaminophen [Percocet 5/325mg tablet] 1 tab PO Q6H PRN #30 tab PRN Reason: Moderate To Severe Pain Continued hydroCHLOROthiazide [HCTZ 25mg tab] 25 mg PO DAILY Metformin HCl [Metformin 1000mg Tablets] 1,000 mg PO BID Lisinopril [Lisinopril 5mg Tablet] 5 mg PO DAILY Glimepiride 4 mg PO DAILY Ertugliflozin Pidolate [Steglatro] 15 mg PO DAILY Discontinued Hydrocod/Acet 5/325 mg [[place] 5/325mg tablet] 1 tab PO Q6HP PRN #10 tab PRN Reason: Moderate To Severe Pain - Problem Reconciliation Problems Reviewed?: Yes
[2018-11-23 07:38] LABS: Basophils % 0.3 % (0.1-2.0); Eosinophils % 0.3 % (0.1-12.0); Hematocrit 37.4 % (37.0-47.0); Hemoglobin 11.7 g/dL (12.2-16.2); Lymphocytes # 1.3 K/mm3 (0.7-4.5); Lymphocytes % 11.6 % (10-50); Mean Corpuscular HGB Conc 31.3 g/dL (31.8-35.4); Mean Corpuscular Volume 90.6 fl (81-99); Mean Platelet Volume 8.3 fl (7.4-10.4); Monocytes # 0.6 K/mm3 (0.1-1.0); Monocytes % 5.5 % (1.7-9.3); Neutrophils # 9.3 K/mm3 (1.8-7.8); Neutrophils % 82.2 % (37.0-80.0); Platelet Count 298 K/mm3 (142-424); Red Blood Count 4.12 M/mm3 (4.20-5.40); Red Cell Distribution Width 13.6 % (11.5-17.5); White Blood Count 11.4 K/mm3 (4.8-10.8)
[2018-11-23 07:47] LABS: Calcium 8.9 mg/dL (8.5-10.1)
--- NOTE | 2018-11-23 10:27 | Progress Note ---
Subjective Date: 11/23/18 Time: 09:30 Principal diagnosis: s/p ORIF L tibial plateau fracture Interval history: The patient reports pain that reaches 7/10 at max, medication helps. Denies fevers or chills, no chest pain or shortness of breath. Medically appropriate for d/c today. Approximately 50cc drainage from hemovac since surgery (4pm yesterday). PN: Obj Ex Vital signs: Temp Pulse Resp BP Pulse Ox 98.5 F 107 H 17 144/90 H 98 11/23/18 08:00 11/23/18 08:00 11/23/18 08:00 11/23/18 08:00 11/23/18 08:00 - Constitutional no acute distress - Routine HEENT Exam Head: Present: normocephalic Eye: Present: EOMI ENT: Present: mucous membranes moist - Routine Respiratory Exam Present: CTA bilaterally. Absent: wheezes - Routine Cardiovascular Exam Present: RRR - Routine Abdominal Exam Present: soft. Absent: tenderness - Routine Extremities Exam Comments: LLE with knee immobilizer, surgical dressings c/d/i hemovac pulled, drain site clean/dry and covered with xeroform; surgical site left undisturbed +DF/PF/EHL LLE SILT distally LLE in all distributions L calf soft, non-tender palpable pedal pulses LLE - Routine Neurological Exam Present: alert, oriented X3, moving all extremities, normal tone, hearing grossly intact, normal speech. Absent: sensory deficit, motor deficit, altered mental status - Routine Psychiatric Exam Present: normal affect - Urinary Catheter Management Harmon Cath placed during this visit: yes Urethral indwelling: No Insertion date: 11/22/18 Insertion time: 12:30 Progress Note: A&P (1) Tibial plateau fracture, left Status: Acute Current Visit: No (2) Diabetes mellitus Status: Acute Current Visit: Yes (3) Hypertension Status: Acute Current Visit: Yes Assessment and Plan for All Diagnoses:: 53yo F POD 1 s/p ORIF L tibial plateau fx -- NWB LLE with knee immobilizer, to be fit with T-scope brace prior to d/c. Keep locked in extension for ambulation, may start unlocking with therapy per plateau fx protocol. -- do not remove surgical dressings until POD 3 -- keep LLE elevated, ice frequently with polar care device -- will start outpatient PT, per ORIF tibial plateau protocol, will also evalu ate for lymphedema therapy -- encourage incentive spirometry -- SCD RLE, lovenox while inpatient; recommend aspirin at discharge (1 daily x4 weeks) -- finish 23hr prophy antibiotics -- harmon has been removed -- d/c home today after therapy session/brace fitting; follow-up with me Wednesday11/28/2018
== END 2018-11-23 15:16 | disposition home or self-care (01) ==
LOC: ER 18:33 → 2ND 18:33
PROVIDERS: ADMIT Internal Medicine Adolescent Medicine; ATTEND Family Medicine
CPT/HCPCS: 36415; 73560; 76000; 80048; 80053; 81001; 82962; 85025; 85610; 93005; 97116; 97162; 97165; 97760; 99284; C1713; C1776; G0378; J2405; J2710

== ENCOUNTER → 2018-11-28 13:20 | Outpatient (CLI) | payer BC, SELFPAY ==
--- NOTE | 2018-11-28 13:28 | XR_ITS ---
PROCEDURE: XR KNEE LT 3V CLINICAL INDICATION: Tibia plateau COMPARISON: KNEE3L KNEE-3 VIEWS-LT from 12/18/2014 KNEE3R KNEE-3 VIEWS-RT from 12/18/2014 FINDINGS: There is metal orthopedic hardware with compression plate and fixation screws involving proximal tibia. There anatomic alignment of the lateral tibial plateau fracture. There is a nondisplaced fracture from the lateral cortex of the neck of the proximal fibula. Bone density is normal and alignment are normal. There is [id number] narrowing of the medial joint compartment with medial femoral condyle and medial tibial spur. Lateral surgical skin anabell are present. There is no joint effusion. IMPRESSION: Postoperative findings as described. Osteoarthritis at the medial compartment. Nondisplaced fibular neck fracture. Dictated by: Eric Marie 11/28/2018 15:01 Electronically signed by Eric Marie in [place] 11/28/2018 15:01
== END ==
PROVIDERS: PCP Family Medicine; Visit Provider Orthopaedic Surgery
DX: S82.142A Displaced bicondylar fracture of left tibia, initial encounter for closed fracture (principal)
CPT/HCPCS: 73562

== ENCOUNTER → 2018-12-22 09:12 | Outpatient (CLI) | payer BC, SELFPAY ==
--- NOTE | 2018-12-22 09:23 | XR_ITS ---
PROCEDURE: XR KNEE LT 3V CLINICAL INDICATION: Tibia plateau FX FU Follow-up tibial plateau fracture/ORIF COMPARISON: KNEE3L KNEE-3 VIEWS-LT from 12/18/2014 KNEE3R KNEE-3 VIEWS-RT from 12/18/2014 XR KNEE LT 3V from 11/28/2018 FINDINGS: Good alignment status post ORIF lateral tibial plateau fracture with lateral bone plate and bone cement present. There is some minimal cortical regularity of the articular surface of the lateral tibial plateau. The a nondisplaced fracture of the fibular neck and head is noted. There are mild osteoarthritic changes of all 3 compartments. The fracture line at the articular surface of the lateral tibial plateau fracture is still visible. Other findings:None. IMPRESSION: No change good alignment status post lateral tibial plateau fracture ORIF Dictated by: Chase Tellez MD 12/22/2018 15:30 Electronically signed by Chase Tellez MD in [place] 12/22/2018 15:30
== END ==
PROVIDERS: PCP Nurse Practitioner; Visit Provider Orthopaedic Surgery
DX: S82.142A Displaced bicondylar fracture of left tibia, initial encounter for closed fracture (principal)
CPT/HCPCS: 73562

== ENCOUNTER → 2019-01-23 09:26 | Outpatient (CLI) | payer BC, SELFPAY ==
--- NOTE | 2019-01-23 09:30 | XR_ITS ---
PROCEDURE: XR KNEE LT 3V CLINICAL INDICATION: Tibial plateau FX FU Follow-up tibial plateau fracture COMPARISON: KNEE3L KNEE-3 VIEWS-LT from 12/18/2014 KNEE3R KNEE-3 VIEWS-RT from 12/18/2014 XR KNEE LT 3V from 11/28/2018 XR KNEE LT 3V from 12/22/2018 FINDINGS: Status post ORIF with lateral bone plate placed stabilizing the lateral tibial plateau fracture. Remains good alignment with only minimal step-off at the articular surface. Osteoarthritic changes are present involving all 3 compartments. Other findings:None. IMPRESSION: Overall no change, good alignment status post ORIF lateral tibial plateau fracture Dictated by: Chase Tellez MD 01/23/2019 13:27 Electronically signed by Chase Tellez MD in [place] 01/23/2019 13:27
== END ==
PROVIDERS: PCP Nurse Practitioner; Visit Provider Orthopaedic Surgery
DX: S82.143A Displaced bicondylar fracture of unspecified tibia, initial encounter for closed fracture (principal)
CPT/HCPCS: 73562

== ENCOUNTER 2019-02-17 10:00 | Outpatient (RCR) | payer BC, SELFPAY ==
--- NOTE | 2018-11-29 10:27 | HMH.PTOPWND ---
Rehab Outpt Wound Evaluation Rehab OP Wound Evaluation Start: 11/29/18 10:14 Freq: Status: Active Protocol: Document 11/29/18 10:14 ANDRY (Rec: 11/29/18 10:26 PHOMATT [id number]) Electronically Signed By Federico Richardson, PT 11/29/18 10:14 Subjective/History History History Pt is 53 yoaaf who presents ~ 1 wk S/P left tibial plateau fx ORIF with expected post-op edema and pain. She reports some increased tenderness on the anterior surface of her foot and ankle, but otherwise is only tender around her incision. She has hx of B LE edema in the past, but is showing no signs of exacerbation at this time. She has PMH of DM-II, HTN, C- section, and hysterectomy. Subjective Subjective She reports 0/10 pain at rest, 8/10 pain in the left knee at worst. She was instructed in continued use of the T-scope brace per MD orders and A/PROM per protocol. Lymphedema Eval Classification of Lymphedema Secondary Lymphedema Yes: Post-op Stemmer's sign Stemmer's Sign no Stage of Lymphedema Lymphedema stages Stage II (Pitting edema, increased fibrosis w/ decreased pitting) Skin Changes Dry Skin Yes Skin Folds Yes Affected Extremities Areas Affected by Lymphedema/Edema Right Lower Extremity,Left Lower Extremity Manual Lymphatic Drainage Treatment Area MLD Treatment Area Right Lower Extremity,Left Lower Extremity Wound Problems/Impairments Impairments Problems/Impairmments Palpation Tenderness,Increased Edema,Subjective C/O Pain, Impaired Self Care/Self Management Prognosis Rehab Potential Good Clinical Impression Consistent with Diagnosis Yes Short Term Goals Number of Weeks 4 Decreased Palpation Tenderness Yes: to min Decrease Edema Yes Patient to Understand Lymphedema Yes Treatment and Exercises Long-Term Goals Number of Weeks 8 Decreased Palpation Tenderness Yes: to none Decrease Edema Yes Patient to Adhere Lymphedema Precautions Yes Outpatient Therapy
--- NOTE | 2018-11-29 10:27 | HMH.PTOPEV ---
PT Outpatient Evaluation Rehab PT Outpatient Evaluation Start: 11/29/18 10:14 Freq: Status: Active Protocol: Document 11/29/18 10:14 ANDRY (Rec: 11/29/18 10:26 PHOMATT [id number]) Electronically Signed By Federico Richardson, PT 11/29/18 10:14 Outpatient Therapy Subjective History Subjective History Pt is 53 yoaaf who presents ~ 1 wk S/P left tibial plateau fx ORIF with expected post-op edema and pain. She reports some increased tenderness on the anterior surface of her foot and ankle, but otherwise is only tender around her incision. She has hx of B LE edema in the past, but is showing no signs of exacerbation at this time. She has PMH of DM-II, HTN, C- section, and hysterectomy. Chief Complaint Pain,Stiff,Swelling Symptom Type Ache Symptoms Relieved By Rest/Positioning Symptoms Aggravated By Physical Activity Prior Functional Limitations None Current Functional Limitations Standing,Walking Symptom Description Activity Dependent Level of pain today (0-10) 0 Pain scale - at its worst (0-10) 8 Hip/Knee Eval MMT left Hip Flexion Strength Grade 2+ Poor+ Hip Abduction Strength Grade 2+ Poor+ Hip Adduction Strength Grade 2+ Poor+ Hip Extension Strength Grade 2+ Poor+ Knee Extension Strength Grade 2+ Poor+ Knee Flexion Strength Grade 2+ Poor+ ROM Knee Extension Active Range of Motion ( 0 degrees) Knee Flexion Active Range of Motion ( 0-60 degrees) Outpatient Therapy Assessment Impairments Problems/Impairmments Palpation Tenderness,Impaired Range of Motion,Impaired Strength,Impaired Endurance, Impaired Transfers,Impaired Gait Pattern,Impaired Walking, Impaired Standing,Impaired Recreational Activities, Increased Edema,Subjective C/O Pain,Impaired Self Care/Self Management Prognosis Rehab Potential Good Clinical Impression Consistent with Diagnosis Yes Short Term Goals Number of Weeks 4 Increase Range of Motion Yes: left knee by 20 deg Increase Strength Yes: Left LE 3+/5 throughout Improve Transfers Yes
--- NOTE | 2019-01-03 11:07 | HMH.RHREAS ---
Rehab Reassessment Rehab OP Re-assessment Start: 01/03/19 11:03 Freq: Status: Active Protocol: Document 01/03/19 11:04 ANDRY (Rec: 01/03/19 11:06 ANDRY [id number]) Electronically Signed By Federico Richardson, PT 01/03/19 11:04 Rehab Re-assessment Subjective Subjective Pt reports pain only intermittently and worse in the evenings. Objective Objective Notes Left knee AROM: 0-90 deg. Left knee MMT: flex/ext= 4/5. Assessment Assessment Notes Pt with considerable improvements in A/PROM of the left knee and strength. Progressing well per protocol. Patient goals met ST,2,3,4,5,6 Goals Not Met LT,2,3,4,5,6 Revised Goals none Plan Plan Continue per initial POC Frequency of Therapy 2x/wk Duration of therapy 8 wks. Time and Billing Re-Eval Time 15 Re-Eval Billing Units 1 PHYSICIAN CERTIFICATION: I certify the specified therapy services for Bhavani Camargo are required, authorized, and reviewed every 30 days.
--- NOTE | 2019-02-09 14:44 | HMH.RHREAS ---
Rehab Reassessment Rehab OP Re-assessment Start: 01/03/19 11:03 Freq: Status: Active Protocol: Document 02/09/19 14:35 PHOMATT (Rec: 02/09/19 14:38 PHORNE [id number]) Electronically Signed By Federico Richardson, PT 02/09/19 14:35 Rehab Re-assessment Subjective Subjective Pt reports no discomfort with increased ambulation using walker. Objective Objective Notes Left Knee AROM: 0-115, which is equal to the uninvolved knee. Assessment Progress Assessment Progressing as Expected Assessment Notes Pt continues to improve strength steadily throughout the left LE per protocol. Tolerating increased WB'ing without pain. Patient goals met ST,2,3,4,5,6 Goals Not Met LT,2,3,4,5,6 Revised Goals none Plan Plan Continue per initial POC Frequency of Therapy 2x/wk Duration of therapy 8 wks. Time and Billing Re-Eval Time 15 Re-Eval Billing Units 1 PHYSICIAN CERTIFICATION: I certify the specified therapy services for Bhavani Camargo are required, authorized, and reviewed every 30 days.
== END 2019-02-17 10:05 | disposition home or self-care (01) ==
LOC: PT 10:00
PROVIDERS: PCP Nurse Practitioner; Visit Provider Orthopaedic Surgery
DX: S82.142D Displaced bicondylar fracture of left tibia, subsequent encounter for closed fracture with routine healing (principal)
CPT/HCPCS: 97110; 97116; 97140; 97163; 97164

== ENCOUNTER → 2019-02-20 09:09 | Outpatient (CLI) | payer BC, SELFPAY ==
--- NOTE | 2019-02-20 09:17 | XR_ITS ---
PROCEDURE: XR KNEE LT 3V CLINICAL INDICATION: tibial plateau FX FU COMPARISON: KNEE3L KNEE-3 VIEWS-LT from 12/18/2014 XR KNEE LT 3V from 11/28/2018 XR KNEE LT 3V from 12/22/2018 XR KNEE LT 3V from 01/23/2019 FINDINGS: Orthopedic hardware involving the proximal tibia remains stable and appears to be intact. The bone density, joint spaces and alignment are stable. Lateral tibial plateau fracture site is stable. There is no acute fracture. There is no joint effusion and soft tissues are stable. IMPRESSION: No change and no acute process. Dictated by: Eric Marie 02/20/2019 18:15 Electronically signed by Eric Marie in [place] 02/20/2019 18:15
== END ==
PROVIDERS: PCP Nurse Practitioner; Visit Provider Orthopaedic Surgery
DX: S82.142A Displaced bicondylar fracture of left tibia, initial encounter for closed fracture (principal)
CPT/HCPCS: 73562

== ENCOUNTER → 2019-03-27 09:00 | Outpatient (CLI) | payer BC, SELFPAY ==
--- NOTE | 2019-03-27 09:07 | XR_ITS ---
PROCEDURE: XR KNEE LT 3V CLINICAL INDICATION: tibial plateau fx follow up Follow-up fracture/ORIF COMPARISON: XR KNEE LT 3V from 11/28/2018 XR KNEE LT 3V from 12/22/2018 XR KNEE LT 3V from 01/23/2019 XR KNEE LT 3V from 02/20/2019 FINDINGS: Lateral bone plate remains in place stabilizing the lateral tibial plateau fracture with only minimal offset the tibial plateau as before. Sclerosis is present at the fracture site consistent with healing. There are tricompartmental osteoarthritic changes. IMPRESSION: Good alignment status post ORIF healing tibial plateau fracture with osteoarthritis Dictated by: Chase Tellez MD 03/27/2019 12:38 Electronically signed by Chase Tellez MD in [place] 03/27/2019 12:38
== END ==
PROVIDERS: PCP Nurse Practitioner; Visit Provider Orthopaedic Surgery
DX: S82.143A Displaced bicondylar fracture of unspecified tibia, initial encounter for closed fracture (principal)
CPT/HCPCS: 73562

== ENCOUNTER 2019-04-28 08:00 | Outpatient (RCR) | payer BC, SELFPAY ==
--- NOTE | 2019-03-31 09:32 | HMH.PTOPWND ---
Rehab Outpt Wound Evaluation Rehab OP Wound Evaluation Start: 03/31/19 09:27 Freq: Status: Active Protocol: Document 03/31/19 09:27 ANDRY (Rec: 03/31/19 09:32 PHOMATT [id number]) Electronically Signed By Federico Richardson, PT 03/31/19 09:27 Subjective/History History History Pt is 53 yoaaf who presents with increased L LE edema, worse x ~ 1 mo, after return to work S/P L tibial plateau fx. She has liong hx of increased edema in the L LE due to lymphedema and her L tibial plateau repair on 11/22 expectedly increased this edema. She has been returned to work for several wks now and has increased edema, but no c/o pain or weakness. She reports the edema does decrease with elevation at night. She has PMH of HTN and DM-II. Subjective Subjective Pt reports no discomfort or pain at this time. Lymphedema Eval Classification of Lymphedema Secondary Lymphedema Yes Post-Surgical Lymphedema Yes Stemmer's sign Stemmer's Sign no Stage of Lymphedema Lymphedema stages Stage II (Pitting edema, increased fibrosis w/ decreased pitting) Skin Changes Dry Skin Yes Skin Folds Yes Other Changes Yes Pain Scale Pain Scale (0-10) 0 Affected Extremities Areas Affected by Lymphedema/Edema Left Lower Extremity Manual Lymphatic Drainage Treatment Area MLD Treatment Area Left Lower Extremity Wound Problems/Impairments Impairments Problems/Impairmments Increased Edema,Lymphedema Present,Subjective C/O Pain, Impaired Self Care/Self Management Prognosis Rehab Potential Good Clinical Impression Consistent with Diagnosis Yes Short Term Goals Number of Weeks 4 Patient to be Ind w/ [place] Yes Compression Garments Patient to Understand Lymphedema Yes Treatment and Exercises Decrease Girth Measurments by (cm) Yes: by 10 cm Group Home Goals Number of Weeks 8 Patient to be Ind w/ HEP Yes Patient to be Ind w/ Lymphedema Self Yes Massage Technique Patient to Adhere Lymphedema Precautions Yes
== END 2019-04-28 08:05 | disposition home or self-care (01) ==
LOC: PT 08:00
PROVIDERS: PCP Nurse Practitioner; Visit Provider Orthopaedic Surgery
DX: S82.142A Displaced bicondylar fracture of left tibia, initial encounter for closed fracture (principal)
CPT/HCPCS: 97140; 97162

== ENCOUNTER 2022-02-24 15:58 | Inpatient (IN) | payer BC, SELFPAY ==
[2022-02-24 15:57] VITALS: BP 171/104; PULSE 82; RESP 18; TEMP 36.8; O2SAT 100; BMI 42.9
--- NOTE | 2022-02-24 16:17 | XR_ITS ---
PROCEDURE INFORMATION: Exam: XR Left Knee Exam date and time: 02/24/2022 5:00 PM Age: 56 years old Clinical indication: Injury or trauma; Fall; Blunt trauma; Prior surgery; Surgery date: 6+ months; Surgery type: Left knee fixation 3 years ago. Patient HX: Fell on icy steps, trauma to left knee. TECHNIQUE: Imaging protocol: Radiologic exam of the Left knee. Views: 3 views. COMPARISON: CR XR KNEE LT 3V 03/27/2019 9:25 AM FINDINGS: Bones/joints: Comminuted distal femur fracture is approximately 5 cm proximal to the patella. The distal fracture fragments are displaced posteriorly. Patella may be dislocated laterally. Lateral fixation plate and screws are related to the tibia from an old healed tibial plateau fracture. No fibular fracture is identified. Soft tissues: No soft tissue gas or radiopaque foreign bodies. IMPRESSION: Comminuted displaced fracture of the diaphysis of the distal left femur. Distal fracture fragments are displaced posteriorly with mild overlap.
--- NOTE | 2022-02-24 16:17 | XR_ITS ---
PROCEDURE INFORMATION: Exam: XR Left Femur Exam date and time: 02/24/2022 4:57 PM Age: 56 years old Clinical indication: Injury or trauma; Fall; Blunt trauma; Thigh or upper leg; Patient HX: Patient fell on ice, trauma to left knee. TECHNIQUE: Imaging protocol: Radiologic exam of the Left femur. Views: 2 views. COMPARISON: 1. CR XR HIP LT 2-3V W/PELVIS 02/24/2022 4:53 PM 2. CR XR KNEE LT 3V 02/24/2022 5:00 PM FINDINGS: Bones/joints: Comminuted fracture of the diaphysis of the distal femur exhibits posterior displacement of the distal fragments as well as slight fracture fragment overlap. The patella may be dislocated laterally. No proximal femur fractures are present. Hip is properly aligned within the acetabulum. Orthopedic fixation plate and screws are related to the lateral proximal tibia and are radiographically stable. Soft tissues: Unremarkable. IMPRESSION: 1. Comminuted distal left femur fracture. Fracture fragments are displaced posteriorly with mild overlap. 2. Possible lateral dislocation of the left patella.
--- NOTE | 2022-02-24 16:17 | XR_ITS ---
PROCEDURE INFORMATION: Exam: XR Left Hip Exam date and time: 02/24/2022 4:53 PM Age: 56 years old Clinical indication: Injury or trauma; Fall; Blunt trauma (contusions or hematomas); Left; Hip TECHNIQUE: Imaging protocol: Radiologic exam of the Left hip. Views: 2 or 3 views hip with pelvis when performed. COMPARISON: CR XR PELVIS 1-2V 11/18/2018 10:08 PM FINDINGS: Bones/joints: Unremarkable. No acute fracture. Soft tissues: Unremarkable. IMPRESSION: No acute findings in the left hip.
--- NOTE | 2022-02-24 16:17 | XR_ITS ---
PROCEDURE INFORMATION: Exam: XR Left Tibia and Fibula Exam date and time: 02/24/2022 5:01 PM Age: 56 years old Clinical indication: Injury or trauma; Fall; Blunt trauma; Lower leg; Left; Patient HX: Patient fell on steps that were icy. TECHNIQUE: Imaging protocol: Radiologic exam of the Left tibia and fibula. Views: 2 views. COMPARISON: CR XR TIBIA FIBULA LT 2V 11/18/2018 10:08 PM FINDINGS: Bones/joints: No fractures or dislocations are identified in the left tibia and fibula. Lateral orthopedic fixation hardware related to the proximal tibia is radiographically stable with no evidence of loosening. The old lateral tibial plateau fracture has healed into anatomic alignment. Acute comminuted fracture is present in the distal left femur with posterior displacement of the distal fragments. Soft tissues: No soft tissue gas, radiopaque foreign bodies, or masses. IMPRESSION: 1. No acute fractures or dislocations in the left tibia and fibula. 2. Stable orthopedic hardware related to the lateral left tibia from previous lateral tibial plateau fracture. 3. Acute, comminuted, posteriorly displaced fracture of the distal left femur.
[2022-02-24 16:30] VITALS: BP 190/95; PULSE 75; RESP 16; O2SAT 100
--- NOTE | 2022-02-24 16:46 | PC.NURSE ---
PT MEDICATED PER EMAR, WARM BLANKET PROVIDED. SON AT BEDSIDE
[2022-02-24 16:54] LABS: Basophils # 0.1 K/mm3 (0-0.2); Eosinophils # 0.3 K/mm3 (0.0-0.4); Eosinophils % 3.2 % (0.1-12.0); Hematocrit 40.5 % (37.0-47.0); Hemoglobin 13.3 g/dL (12.2-16.2); Lymphocytes # 2.7 K/mm3 (0.7-4.5); Lymphocytes % 33.5 % (10-50); Mean Corpuscular HGB Conc 32.7 g/dL (31.8-35.4); Mean Corpuscular Hemoglobin 29.5 pg (27.0-31.2); Mean Corpuscular Volume 90.2 fl (81-99); Monocytes # 0.3 K/mm3 (0.1-1.0); Monocytes % 3.7 % (1.7-9.3); Neutrophils # 4.7 K/mm3 (1.8-7.8); Neutrophils % 58.6 % (37.0-80.0); Platelet Count 243 K/mm3 (142-424); Red Blood Count 4.49 M/mm3 (4.20-5.40); Red Cell Distribution Width 13.2 % (11.5-17.5)
[2022-02-24 16:56] LABS: Chloride 102 mmol/L (98-107); Potassium 3.7 mmoL/L (3.5-5.1); Sodium 139 mmol/L (136-145)
[2022-02-24 16:59] LABS: Alanine Aminotransferase 28 U/L (12-78); Albumin Level 4.1 g/dl (3.5-5.0); Albumin/Globulin Ratio 1.5 (1.1-1.8); Alkaline Phosphatase 72 U/L (38-126); Anion Gap 13.7 mEq/L (5-15); Aspartate Amino Transferase 29 U/L (14-36); Bilirubin,Total 0.5 mg/dl (0.2-1.3); Blood Urea Nitrogen 19 mg/dl (7-17); Carbon Dioxide 27 mmol/L (22.0-30.0); Creatinine Clearance Estimated 60 mL/min (50-200); Estimated Glomerular Filt Rate 65 ml/min (>60); GFR (African American) 78 ML/MIN (>60); Globulin 2.8 g/dL (1.3-3.2); Total Protein,Serum 6.9 g/dl (6.3-8.2)
[2022-02-24 17:00] LABS: Calcium 10.9 mg/dl (8.4-10.2); Glucose 225 mg/dl (74-100)
--- NOTE | 2022-02-24 17:02 | PC.NURSE ---
1654 PT TO XR
--- NOTE | 2022-02-24 17:21 | PC.NURSE ---
PT RETURNED FROM XR
[2022-02-24 17:31] VITALS: BP 150/82; PULSE 78; RESP 16; O2SAT 100
--- NOTE | 2022-02-24 17:32 | PC.NURSE ---
ROUNDED ON PT, PT C/O PAIN. NOTIFIED
[2022-02-24 18:00] VITALS: BP 143/70; PULSE 78; RESP 17; O2SAT 100
--- NOTE | 2022-02-24 18:08 | PC.NURSE ---
DR. HILLMAN AT BEDSIDE
--- NOTE | 2022-02-24 18:14 | HMH.EDGENADL ---
Discharge Plan Disposition Patient Disposition: Admitted As Inpatient Condition: Fair Clinical Impressions Clinical Impression: Closed femur fracture Discharge ED Provider: Sree Mcelroy General Adult HPI General Chief complaint: Fall Stated complaint: FALL Time Seen by Provider: 02/24/22 18:05 Mode of Arrival: EMS Limitations: No Limitations Description of Symptoms (Recalled from ER Triage Doc. by RN): SLIP AND FALL ON ICE. PT FELL ON RIGHT SIDE, LEFT LEG/KNEE TWISTED. LEFT LEG SHORTER THAN RIGHT. PULSES PALPABLE. NO LOSS OF SENSATION. History of Present Illness HPI narrative: Complains of an injury to her left distal thigh and knee area. States that she was walking on her driveway and slipped on slick pavement. As she fell her left leg went laterally and now she has pain in the region of her left knee. Denies any other injury including head or neck injury, chest, back, abdominal injury. No injury to the upper extremities. No numbness or weakness of leg. She has diabetes. She is not on any blood thinners except aspirin. Related Data Home Medications Medication Instructions Recorded Confirmed ertugliflozin 15 mg tablet 15 mg PO DAILY Diabetes 11/18/18 02/24/22 glimepiride 4 mg tablet 4 mg PO DAILY Diabetes 11/18/18 02/24/22 hydrochlorothiazide 25 mg tablet 25 mg PO DAILY Fluid 11/18/18 02/24/22 lisinopril 5 mg tablet 5 mg PO DAILY Hypertension 11/18/18 02/24/22 metformin 1,000 mg tablet 1,000 mg PO BID Diabetes 11/18/18 02/24/22 aspirin 325 mg tablet 325 mg PO DAILY Heart disease 02/24/22 02/24/22 Allergies Allergy/AdvReac Type Severity Reaction Status Date / Time No Known Allergies Allergy Verified 03/27/19 10:15 [facility] Disclaimer: The information contained in this section may have been updated after the patient was seen, as this information can be updated by other users. Medical History Diabetes Hypertension Hypertension Surgical History H/O: hysterectomy S/P knee surgery Social History Smoking Status: Never smoker alcohol intake: never substance use type: denies use current occupational status: employed Travel in the last 8 weeks: None household members: spouse ROS Obtained: Yes Systems reviewed as appropriate & no additional complaints except as documented Constitutional Constitutional: Denies fever(s), Denies headache(s) and Denies weakness ENT Ears, Nose, Mouth, and Throat: Denies headache(s), Denies nasal discharge, Denies neck pain and Denies sore throat Cardiovascular Cardiovascular: Denies chest pain Respiratory Respiratory: Denies shortness of breath and Denies cough Gastrointestinal Gastrointestingal: Denies abdominal pain, constipation, diarrhea or vomiting Genitourinary Female Genitourinary: Denies difficulty voiding, Denies dysuria and Denies flank pain Musculoskeletal Musculoskeletal: Reports as per HPI, Denies back pain, Denies neck pain and Denies numbness Neurologic Neurologic: Denies headache(s), Denies numbness and Denies weakness Physical Exam General General appearance: alert and in no apparent distress Head Head exam: atraumatic and normocephalic Eye Eye exam: Present normal appearance and EOMI ENT ENT exam: Present mucous membranes moist Neck Neck exam: Present normal inspection, full ROM and trachea midline; Absent tenderness Chest Chest inspection: Present normal inspection and symmetric chest wall rise; Absent tenderness Respiratory Respiratory exam: Present normal lung sounds bilaterally; Absent respiratory distress Cardiovascular Cardiovascular exam: Present regular rate, normal rhythm and normal heart sounds Abdominal Exam Abdominal exam: Present soft and normal bowel sounds; Absent distention, tenderness, guarding, rebound or rigidity Extremities Exam Extremities exam: Present norm
--- NOTE | 2022-02-24 18:20 | PC.NURSE ---
SPOKE WITH DR DEY HE AGREED TO TAKE PT
[2022-02-24 18:26] LABS: Coronavirus 19, PCR Not Detected (NotDetected); Influenza A, PCR Not Detected (NotDetected); Influenza B, PCR Not Detected (NotDetected)
--- NOTE | 2022-02-24 18:37 | XR_ITS ---
PROCEDURE INFORMATION: Exam: XR Chest Exam date and time: 02/24/2022 6:56 PM Age: 56 years old Clinical indication: Pain; Other: Femur fracture TECHNIQUE: Imaging protocol: Radiologic exam of the chest. Views: 1 view. Portable chest x-ray COMPARISON: ABDPELW/O CT ABD PELVIS W/O CONTRAST 05/15/2015 12:02 AM FINDINGS: Lungs: No consolidation or lung nodules. Pleural spaces: No pleural effusion. No pneumothorax. Heart/Mediastinum: No abnormalities. No cardiomegaly. No pulmonary vascular congestion. Bones/joints: No fractures or bone lesions. IMPRESSION: No acute findings in the chest.
--- NOTE | 2022-02-24 19:02 | ECG_ITS ---
APPROVED REPORT Exam: Resting ECG HR:71 bpm ECG Measurements Heart Rate 71 AXES MT 137 P 57 QRSd 94 QRS -2 QT 381 T -68 QTc 404 Conclusion SINUS RHYTHM NONSPECIFIC ST & T-WAVE ABNORMALITY ABNORMAL ECG UNCONFIRMED REPORT Electronically signed by : Edwin Lopez MD 02/24/2022 20:07:36
--- NOTE | 2022-02-24 19:37 | PC.NURSE ---
INFORMATION SYSTEMS SECURITY MANAGER NOTIFIED OF ADMISSION
--- NOTE | 2022-02-24 19:39 | EXP.HP ---
History of Present Illness *Admission Date: 02/24/22 *Reason for visit:: Fall *History of present illness: Ms. Camargo is a 56-year-old female with a past medical history that is positive for HTN, DM and Obesity. She presents to [facility] due to a fall on ice at ground level that occurred approximately a couple hours prior to presentation. The patient stated she was walking outside and slipped and fell, she had her phone with her. She reports that she was unable to bear weight and she fell on her right side with her left leg twisted underneath her. In the ER, the patient had multiple imaging that showed an acute, communited posterior displaced fracture of the distal left femur. EKG showed NSR with rate of [address] segment elevation or depression. CBC and CMP were unremarkable. The patient will be admitted with initial impression: Acute Comminuted Posterior Distal Fracture of the distal left femur. Orthopaedics will be consulted to see the patient, she will be placed on a pain regime. The plan of care was discussed with the patient in length and detail on admission. The patient verbalized understanding and agreement with the plan of care. [facility] Disclaimer: The information contained in this section may have been updated after the patient was seen, as this information can be updated by other users. Medical History Diabetes Hypertension Hypertension Surgical History H/O: hysterectomy S/P knee surgery Social History (Updated 02/25/22 @ 04:03 by Twila Arenas RN) Smoking Status: Never smoker alcohol intake: never substance use type: denies use current occupational status: employed Travel in the last 8 weeks: None household members: spouse Review of Systems Review of Systems Review of systems:: pertinent systems reviewed and negative unless documented below Constitutional Constitutional: Reports system reviewed and no additional complaints, except as documented Eyes Eyes: Reports system reviewed and no additional complaints, except as documented ENT Ears, Nose, Mouth, and Throat: Reports system reviewed and no additional complaints, except as documented *Cardiovascular Cardiovascular: Reports system reviewed and no additional complaints, except as documented *Respiratory Respiratory: Reports system reviewed and no additional complaints, except as documented *Gastrointestinal Gastrointestinal: Reports system reviewed and no additional complaints, except as documented *Genitourinary Genitourinary: Reports system reviewed and no additional complaints, except as documented *Musculoskeletal Musculoskeletal: Reports abnormal gait Comments: Pain in left thigh/femur region Integumentary/Breasts Skin/Breast: Reports system reviewed and no additional complaints, except as documented *Neurologic Neurologic: Reports abnormal gait Psychiatric Psychiatric: Reports system reviewed and no additional complaints, except as documented Endocrine Endocrine: Reports system reviewed and no additional complaints, except as documented Hematologic/Lymphatic Hematologic/Lymphatic: Reports system reviewed and no additional complaints, except as documented Allergic/Immunologic Allergic/Immunologic: Reports system reviewed and no additional complaints, except as documented Meds Home Medications and Allergies Home Medications Medication Instructions Recorded Confirmed Type ertugliflozin 15 mg tablet 15 mg PO DAILY Diabetes 11/18/18 02/24/22 History glimepiride 4 mg tablet 4 mg PO DAILY Diabetes 11/18/18 02/24/22 History hydrochlorothiazide 25 mg tablet 25 mg PO DAILY Fluid 11/18/18 02/24/22 History lisinopril 5 mg tablet 5 mg PO DAILY Hypertension 11/18/18 02/24/22 History metformin 1,000 mg tablet 1,500 mg PO BID Diabetes 11/18/18 02/25/22 History aspirin 325 mg tablet 325 mg PO DAILY Heart disease 12
--- NOTE | 2022-02-24 21:11 | EXP.ORTH.CON ---
History of Present Illness *Admission Date: 02/24/22 *Reason for visit:: Left distal femur fracture *History of present illness: Ms. Camargo is a 56-year-old female with a past medical history that is positive for HTN, DM and Obesity. She presents to [facility] due to a fall on ice at ground level that occurred approximately a couple hours prior to presentation. The patient stated she was walking outside and slipped and fell, she had her phone with her. She reports that she was unable to bear weight and she fell on her right side with her left leg twisted underneath her. In the ER, the patient had multiple imaging that showed an acute, communited posterior displaced fracture of the distal left femur. EKG showed NSR with rate of [address] segment elevation or depression. CBC and CMP were unremarkable. The patient will be admitted with initial impression: Acute Comminuted Posterior Distal Fracture of the distal left femur. Orthopaedics was consulted to see the patient, she will be placed on a pain regime. [facility] Disclaimer: The information contained in this section may have been updated after the patient was seen, as this information can be updated by other users. Medical History Diabetes Hypertension Hypertension Surgical History H/O: hysterectomy S/P knee surgery Social History Smoking Status: Never smoker alcohol intake: never substance use type: denies use current occupational status: employed Travel in the last 8 weeks: None household members: spouse Review of Systems Constitutional Constitutional: Denies headache(s) and Denies weakness Eyes Eyes: Reports system reviewed and no additional complaints, except as documented ENT Ears, Nose, Mouth, and Throat: Denies headache(s) *Cardiovascular Cardiovascular: Denies chest pain with activity and Denies dyspnea *Respiratory Respiratory: Denies dyspnea *Gastrointestinal Gastrointestinal: Reports system reviewed and no additional complaints, except as documented *Genitourinary Genitourinary: Reports system reviewed and no additional complaints, except as documented *Musculoskeletal Musculoskeletal: Reports abnormal gait and Denies numbness *Neurologic Neurologic: Reports abnormal gait, Denies headache(s), Denies numbness and Denies weakness Meds Home Medications and Allergies Home Medications Medication Instructions Recorded Confirmed Type ertugliflozin 15 mg tablet 15 mg PO DAILY Diabetes 11/18/18 02/24/22 History glimepiride 4 mg tablet 4 mg PO DAILY Diabetes 11/18/18 02/24/22 History hydrochlorothiazide 25 mg tablet 25 mg PO DAILY Fluid 11/18/18 02/24/22 History lisinopril 5 mg tablet 5 mg PO DAILY Hypertension 11/18/18 02/24/22 History metformin 1,000 mg tablet 1,000 mg PO BID Diabetes 11/18/18 02/24/22 History aspirin 325 mg tablet 325 mg PO DAILY Heart disease 02/24/22 02/24/22 History New Prescriptions to Start Prescriptions: Allergies Allergy/AdvReac Type Severity Reaction Status Date / Time No Known Allergies Allergy Verified 03/27/19 10:15 Ortho Exam (Inpt) Vital signs and Labs for Last 24 Hours: Temp Pulse Resp BP Pulse Ox 98.3 F 78 17 143/70 H 100 02/24/22 15:57 02/24/22 18:00 02/24/22 18:00 02/24/22 18:00 02/24/22 18:00 Laboratory Results - last 24 hr 02/24/22 16:40: WBC 8.0, RBC 4.49, Hgb 13.3, Hct 40.5, MCV 90.2, MCH 29.5, MCHC 32.7, RDW 13.2, Plt Count 243, MPV 10.0, Neut % (Auto) 58.6, Lymph % (Auto) 33.5, Hemphill % (Auto) 3.7, Eos % (Auto) 3.2, Baso % (Auto) 1.0, Neut # (Auto) 4.7, Lymph # (Auto) 2.7, Hemphill # (Auto) 0.3, Eos # (Auto) 0.3, Baso # (Auto) 0.1 02/24/22 16:40: Sodium 139, Potassium 3.7, Chloride 102, Carbon Dioxide 27, Anion Gap 13.7, BUN 19 H, Creatinine 0.90, Estimated Creat Clear 60, Estimated GFR 65, Est GF
[2022-02-24 22:48] VITALS: BP 163/89; PULSE 80; RESP 18; TEMP 36.6; O2SAT 98
[2022-02-25] VITALS (21 sets, daily range): BP systolic 105–139; BP diastolic 61–84; PULSE 85–121; RESP 16–22; TEMP 6.1–43; O2SAT 94–100; BMI 453105.4; BMI 45.3
--- NOTE | 2022-02-25 01:00 | PC.NURSE ---
Called Shimon (hospitalist) as patient is having severe pain and the dilaudid doesnt appear to be helping long filler cigar roller machine. Per Shimon, since she is NPO for surgery in the am, she cannot have po pain medication but she will order additional iv medications.
--- NOTE | 2022-02-25 02:56 | PC.NURSE ---
Patient arrived to the unit at this time via stretcher.
[2022-02-25 04:37] LABS: Microscopic, Urine URINE MICROSCOPIC (MICROSCOPIC)
[2022-02-25 04:40] LABS: Appearance,Urine CLEAR (Clear); Bilirubin,Urine Negative (Negative); Blood, Urine Negative (Negative); Color,Urine YELLOW (Yellow); Glucose,Urine (UA) 3+ (Negative); Ketones,Urine 2+ (Negative); Leukocyte Esterase,Urine Negative (Negative); Nitrate,Urine Negative (Negative); PH,Urine 6.5 (5.0-8.5); Protein,Urine Negative (Negative); Urobilinogen,Urine 0.2 EU/dl (0.2)
[2022-02-25 05:21] LABS: Bacteria,Urine Trace /lpf; WBC,Urine Occasional #/hpf (0-3)
[2022-02-25 06:21] LABS: POC Glucose,Bedside 351 (70-110)
[2022-02-25 07:06] LABS: Chloride 102 mmol/L (98-107); Potassium 4.3 mmoL/L (3.5-5.1); Sodium 136 mmol/L (136-145)
[2022-02-25 07:09] LABS: Alanine Aminotransferase 23 U/L (12-78); Albumin Level 3.5 g/dl (3.5-5.0); Albumin/Globulin Ratio 1.4 (1.1-1.8); Alkaline Phosphatase 55 U/L (38-126); Anion Gap 15.3 mEq/L (5-15); Aspartate Amino Transferase 22 U/L (14-36); Bilirubin,Total 0.6 mg/dl (0.2-1.3); Blood Urea Nitrogen 19 mg/dl (7-17); Calcium 8.6 mg/dl (8.4-10.2); Carbon Dioxide 23 mmol/L (22.0-30.0); Creatinine Clearance Estimated 119 mL/min (50-200); Estimated Glomerular Filt Rate 57 ml/min (>60); GFR (African American) 69 ML/MIN (>60); Globulin 2.5 g/dL (1.3-3.2); Glucose 366 mg/dl (74-100)
[2022-02-25 07:10] LABS: Basophils # 0.1 K/mm3 (0-0.2); Basophils % 0.5 % (0.1-2.0); Eosinophils # 0.1 K/mm3 (0.0-0.4); Eosinophils % 0.7 % (0.1-12.0); Hematocrit 32.6 % (37.0-47.0); Lymphocytes # 1.5 K/mm3 (0.7-4.5); Lymphocytes % 16.6 % (10-50); Magnesium 1.6 mg/dl (1.6-2.3); Mean Corpuscular HGB Conc 33.9 g/dL (31.8-35.4); Mean Corpuscular Hemoglobin 30.1 pg (27.0-31.2); Mean Corpuscular Volume 88.7 fl (81-99); Monocytes # 0.4 K/mm3 (0.1-1.0); Monocytes % 3.9 % (1.7-9.3); Neutrophils # 7.2 K/mm3 (1.8-7.8); Neutrophils % 78.2 % (37.0-80.0); Platelet Count 264 K/mm3 (142-424); Prothrombin Time 10.8 seconds (10.1-12.5); Red Blood Count 3.68 M/mm3 (4.20-5.40); Red Cell Distribution Width 13.5 % (11.5-17.5); White Blood Count 9.1 K/mm3 (4.8-10.8)
[2022-02-25 07:19] LABS: Hemoglobin 11.1 g/dL (12.2-16.2)
--- NOTE | 2022-02-25 07:29 | HMH.PHAINT1 ---
Pharmacy Intervention Comments: MEDICATION RECONCILIATION COMPLETED ON PATIENT USING EXTERNAL FILL HISTORY FROM PHARMACY. -BACILIO PAYNE, KIRILLD
--- NOTE | 2022-02-25 08:08 | EXP.ACUTE.PN ---
Subjective *Date: 02/25/22 *Time: 12:48 Interval history: No acute events overnight. Pain controlled on current regimen. Stable on room air. N.p.o. at midnight. Denies nausea, chest pain, shortness of breath, confusion. Medical Exam Vital signs and Labs for Last 24 Hours: Vital Signs Temp Pulse Pulse Resp BP BP Pulse Ox 02/25/22 07:51 96 02/25/22 07:50 98.2 F 120 H 18 112/62 96 02/25/22 04:00 95 02/25/22 04:00 99.2 F 110 H 17 133/84 95 02/24/22 22:48 98 F 80 18 163/89 H 02/24/22 18:00 78 17 143/70 H 100 02/24/22 17:31 78 16 150/82 H 100 02/24/22 16:30 75 16 190/95 H 100 02/24/22 15:57 98.3 F 82 18 171/104 H 100 Intake and Output 02/24/22 02/25/22 02/25/22 23:59 07:59 15:59 Intake Total 310 / 310 Output Total 700 / 700 Balance -390 / -390 Intake: Intake, Total IV Amount 310 / 310 Ringers Solution,Lactated 1,000 310 / 310 ml @ 100 mls/hr IV .Q10H [facility] Rx#:[id number] Output: Output, Urine Amount (Catheter) 700 / 700 Ashby 700 / 700 Other: Weight 119.748 kg Patient Weight 02/25/22 23:59 Weight 119.748 kg Laboratory Results - last 24 hr 02/24/22 16:40: WBC 8.0, RBC 4.49, Hgb 13.3, Hct 40.5, MCV 90.2, MCH 29.5, MCHC 32.7, RDW 13.2, Plt Count 243, MPV 10.0, Neut % (Auto) 58.6, Lymph % (Auto) 33.5, Izard % (Auto) 3.7, Eos % (Auto) 3.2, Baso % (Auto) 1.0, Neut # (Auto) 4.7, Lymph # (Auto) 2.7, Izard # (Auto) 0.3, Eos # (Auto) 0.3, Baso # (Auto) 0.1 02/24/22 16:40: Sodium 139, Potassium 3.7, Chloride 102, Carbon Dioxide 27, Anion Gap 13.7, BUN 19 H, Creatinine 0.90, Estimated Creat Clear 60, Estimated GFR 65, Est GFR ( Amer) 78, Glucose 225 H, Calcium 10.9 H, Total Bilirubin 0.5, AST 29, ALT 28, Alkaline Phosphatase 72, Total Protein 6.9, Albumin 4.1, Globulin 2.8, Albumin/Globulin Ratio 1.5 02/24/22 18:15: SARS-CoV-2 (PCR) Not detected, Influenza A Untype (PCR) Not detected, Influenza Type B (PCR) Not detected 02/25/22 04:16: Urine Color Yellow, Urine Appearance Clear, Urine pH 6.5, Ur Specific Goldonna 1.020, Urine Protein Negative, Urine Glucose (UA) 3+, Urine Ketones 2+, Urine Blood Negative, Urine Nitrate Negative, Urine Bilirubin Negative, Urine Urobilinogen 0.2, Ur Leukocyte Esterase Negative, Urine WBC Occasional, Ur Squamous Epith Cells 3-5, Urine Bacteria Trace 02/25/22 06:14: POC Glucose 351 H* 02/25/22 06:50: WBC 9.1, RBC 3.68 L, Hgb 11.1 L D, Hct 32.6 L, MCV 88.7, MCH 30.1, MCHC 33.9, RDW 13.5, Plt Count 264, MPV 10.0, Neut % (Auto) 78.2, Lymph % (Auto) 16.6, Izard % (Auto) 3.9, Eos % (Auto) 0.7, Baso % (Auto) 0.5, Neut # (Auto) 7.2, Lymph # (Auto) 1.5, Izard # (Auto) 0.4, Eos # (Auto) 0.1, Baso # (Auto) 0.1 02/25/22 06:50: PT 10.8, INR 1.00 02/25/22 06:50: Sodium 136, Potassium 4.3, Chloride 102, Carbon Dioxide 23, Anion Gap 15.3 H, BUN 19 H, Creatinine 1.00, Estimated Creat Clear 119, Estimated GFR 57 L, Est GFR ( Amer) 69, Glucose 366 H D, Calcium 8.6, Magnesium 1.6, Total Bilirubin 0.6, AST 22, ALT 23, Alkaline Phosphatase 55, Total Protein 6.0 L, Albumin 3.5 D, Globulin 2.5, Albumin/Globulin Ratio 1.4 I & O for Labs for Last 24 Hours: Intake & Output 02/22/22 02/23/22 02/24/22 02/25/22 23:59 23:59 23:59 23:59 Intake Total 310 / 310 Output Total 700 / 700 Balance -390 / -390 Weight 113.398 kg 119.748 kg Constitutional: Present no acute distress and morbidly obese Head: Present atraumatic and normocephalic ENT: Present normal exam Neck: Present normal inspection Respiratory: Present normal respiratory effort; Absent accessory muscle use, rhonchi, wheezes or crackles Cardiac: Present Reg Rate and Rhythm GI: Present soft and normal bowel sounds; Absent distention or tenderness Extremities: Present full ROM Comment:: left leg externally rotated, flexed at the knee. Tender to palpation over distal thigh Skin: Present intact; Absent erythema Neuro: Present Grossly Int
[2022-02-25 08:54] LABS: Hemoglobin A1C 10.7 % (4.0-6.0)
--- NOTE | 2022-02-25 10:11 | SW/DCPLANNER ---
I spoke with this patient regarding plans once medically stable for discharge. Patient will have surgery today due to femur fracture. Patient stated that she will not be able to return home due to living on second floor apartment. Patient has expressed an interest in [facility] at time of discharge. I will fax patient information to Emmy hendrickson/ [facility] this AM and continue to follow up. Discharge date is unknown at this time.
[2022-02-25 11:11] LABS: POC Glucose,Bedside 306 (70-110)
--- NOTE | 2022-02-25 12:35 | PC.NURSE ---
1215 PATIENT TO [facility] VIA BED. REPORT GIVEN TO [facility] STAFF PRIOR TO TRANSFER.
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
--- NOTE | 2022-02-25 16:58 | P.PNANES_ITS ---
[facility] Anesthesia Record Part II Anesthesia Record Part II Discharge Time: 15:04 Destination: Medical Surgical Department PACU nurse assessment reviewed?: Yes Patient Condition:: Good Anesthesia Complications:: None Swallowing reflex intact?: Yes Cyanosis?: No Mental Status: Alert & Oriented Pain level:: 0 Nausea and/or vomitting:: None Intake, IV Amount: 0
--- NOTE | 2022-02-25 17:12 | EXP.ANES.CKL ---
[facility] Disclaimer: The information contained in this section may have been updated after the patient was seen, as this information can be updated by other users. Medical History Diabetes Hypertension Hypertension Surgical History H/O: hysterectomy S/P knee surgery Social History (Updated 02/25/22 @ 04:03 by Twila Arenas RN) Smoking Status: Never smoker alcohol intake: never substance use type: denies use current occupational status: employed Travel in the last 8 weeks: None household members: spouse [facility] Anesthesia Checklist Patient Identification Patient Identification: Arm Band Structural Data Admitted From: Inpatient Planned Operative Procedure/s: ORIF Left Distal Femur Consent for Planned Operative Procedure(s) Verified: Yes Verified Documents: Surgical Consent and History and Physical NPO Status Verified Time NPO: 00:00 Additional verifications Anesthesia Reactions: No Airway Assessment C-Spine Mobility Assessed: Yes TMJ Mobility Assessed: Yes Dentition: Good Dentition Neurological Assessment Level of Consciousness: Awake and Alert Anesthesia Plan Anesthesia Risk discussed: Yes Anesthesia Plan: Verified ASA Class: III Anesthesia Type: General
--- NOTE | 2022-02-25 17:43 | EXP.OP.NOTE ---
Date of procedure: 02/25/22 Pre-op Diagnosis:: Left distal femur fracture Post-op Diagnosis:: Left distal femur fracture Procedure performed:: Open reduction internal fixation left distal femur Surgeon:: Martin Herrera DO Nitrate Operator(s):: Vero Mai PA-C [employer] PV INSTALLER:: Cruz Devi Anesthesia: GETA Estimated blood loss (mL): 100 Operative findings:: Severely comminuted distal femur fracture with severe posterior comminution and anterior comminution. Operative note:: Patient was identified preoperatively. Left lower extremity marked yes my initials. Transported operative suite placed supine on the radiolucent bed. General anesthesia administered airway secured. Left lower extremity then prepped and draped in normal sterile fashion. Once prepped and draped final operative timeout performed to identify proper patient procedure and extremity. Everyone involved in case agreed. No counter indications to beginning. Patient did receive preoperative antibiotics. X-ray was brought in to identify the fracture site level and femoral condyle. Bony landmarks were marked on the skin. Lateral based incision planned. Skin knife was used incise through skin. Careful dissection was taken down. Patient has a large soft tissue envelope on the lateral aspect of the leg. Dissection was taken down through the fat layers and all vessels were identified and cauterized. Attention was dissected down to the level of the distal femur. Significant dissection through soft tissue envelope was performed. Lateral IT band opened. Self-retaining retractors placed. Dissection was taken down to identify the distal femur fragment. There did not appear to be intercondylar split from an articular standpoint. K wire was placed in the distal fragment. Plates were the Synthes locking condylar plate which were selected the appropriate size. Upon reduction of the fracture she has severe posterior comminution and anterior comminution. There is no cortical read for reducing the fracture. The only opposition possible was then a slightly extended position of the distal fragment due to the severe posterior comminution and the anterior comminution. Plate was selected and held primarily with K wires reduction of the shaft to the plate was performed with a whirlybird device. Distal screws were placed in locking fashion. Then proximal lag screw was placed followed by locking screws proximal to the fragment 8 cortices. There was severe difficulty with getting proper read on the fracture fragments secondary to severe comminution both anteriorly and posteriorly. X-rays were taken that revealed reduction of the distal fragment to the proximal fragment. Patient waken anesthesia taken recovery in stable condition. She will make remain nonweightbearing on this lower extremity and require rehabilitation given her living circumstances. Copious irrigation wound performed. Deep layers closed with 0 Vicryl stitch subcutaneous 2-0 Vicryl stitch surgical clips in the skin for closure sterile dressing placed. Patient waken anesthesia taken recovery in stable condition. Condition: stable Disposition: PACU Complications:: None apparent
--- NOTE | 2022-02-25 17:46 | P.PNANES_ITS ---
[facility] Anesthesia Record Part I Anesthesia Record I Intake, IV Amount: 2,000 Estimated blood loss (mL): 100 Urine output (mL): 150 Blood Products used (#): none Blood Pressure: 127/82 SaO2: 94 Pulse Rate: 105 Respiratory Rate: 16 Temperature: 98.9 F Patient is:: Drowsy and Stable Stable to PACU at:: 17:40
[2022-02-25 17:58] LABS: POC Glucose,Bedside 282 (70-110)
--- NOTE | 2022-02-25 18:35 | SUR.PHASEI ---
174-blood sugar taken. Resulted @ 286. Reported to Marlyn MENCHACA. No new orders received. Pt sleepy but arouses easily. States I just feel groggy . No c/o pain. Warm blankets placed on pt. 1804- @ bs. No new orders received. 200 ml clear, yellow urine emptied from f/c. 1809-detailed report called to [facility]. Pt transported via bed to OB per Tima [facility] & Rafa. Pt left in care of Kecia JU[facility] & [facility]. Family @ BS.
--- NOTE | 2022-02-25 19:03 | PC.NURSE ---
REPORT GIVEN TO Sandra VALENTINE RN
[2022-02-25 20:05] LABS: POC Glucose,Bedside 329 (70-110)
[2022-02-26] VITALS (14 sets, daily range): BP systolic 91–147; BP diastolic 53–84; PULSE 96–127; RESP 15–20; TEMP 36.8–38.5; O2SAT 97–100; BMI 470268.5
--- NOTE | 2022-02-26 05:00 | PC.NURSE ---
Patient has done well this RN's shift. Patient has become febrile with a temperature of 100.2, hospitalist notified and treated with tylenol per APR. Patient's dressing is clean, dry and intact. Patient lung sounds are clear throughout. Patient remains to have bilateral pedal pulse. Patient's bilateral extremities remain WNL.
--- NOTE | 2022-02-26 05:58 | XR_ITS ---
PROCEDURE INFORMATION: Exam: XR Chest Exam date and time: 02/26/2022 6:15 AM Age: 56 years old Clinical indication: Fever; Patient HX: Post op femur; Additional info: Fevers, post-op TECHNIQUE: Imaging protocol: Radiologic exam of the chest. Views: 1 view. COMPARISON: CR (CHEST, CXR AP LANDSCAPE) 02/24/2022 6:56 PM FINDINGS: Lungs: Mild basilar airspace disease, warranting follow-up chest radiograph to exclude early infiltrate. Pleural spaces: No pleural effusion. Heart/Mediastinum: Normal configuration of the heart. Bones/joints: Unremarkable. IMPRESSION: Mild basilar airspace disease, warranting follow-up chest radiograph to exclude early infiltrate.
[2022-02-26 06:30] LABS: POC Glucose,Bedside 279 (70-110)
--- NOTE | 2022-02-26 07:09 | P.PNANES_ITS ---
[facility] Anesthesia Record Part II Anesthesia Record Part II Discharge Time: 18:10 Destination: Surgical Day Care (OP Surgery) PACU nurse assessment reviewed?: Yes Patient Condition:: Good Anesthesia Complications:: None Swallowing reflex intact?: Yes Cyanosis?: No Blood Pressure: 116/84 Pulse Rate: 96 Temperature: 98.9 F Mental Status: Alert & Oriented Pain level:: 0 Nausea and/or vomitting:: None Intake, IV Amount: 0
[2022-02-26 07:25] LABS: Chloride 100 mmol/L (98-107); Potassium 3.9 mmoL/L (3.5-5.1); Sodium 134 mmol/L (136-145)
[2022-02-26 07:28] LABS: Anion Gap 8.9 mEq/L (5-15); Blood Urea Nitrogen 26 mg/dl (7-17); Calcium 7.5 mg/dl (8.4-10.2); Carbon Dioxide 29 mmol/L (22.0-30.0); Creatinine Clearance Estimated 95 mL/min (50-200); Estimated Glomerular Filt Rate 42 ml/min (>60); GFR (African American) 51 ML/MIN (>60); Glucose 238 mg/dl (74-100)
[2022-02-26 07:48] LABS: Basophils % 0.4 % (0.1-2.0); Eosinophils % 0.4 % (0.1-12.0); Hematocrit 25.4 % (37.0-47.0); Lymphocytes # 1.8 K/mm3 (0.7-4.5); Lymphocytes % 20.9 % (10-50); Mean Corpuscular HGB Conc 33.3 g/dL (31.8-35.4); Mean Corpuscular Hemoglobin 30.1 pg (27.0-31.2); Mean Corpuscular Volume 90.2 fl (81-99); Mean Platelet Volume 9.8 fl (7.4-10.4); Monocytes # 0.3 K/mm3 (0.1-1.0); Monocytes % 3.8 % (1.7-9.3); Neutrophils # 6.4 K/mm3 (1.8-7.8); Neutrophils % 74.5 % (37.0-80.0); Platelet Count 169 K/mm3 (142-424); Red Blood Count 2.82 M/mm3 (4.20-5.40); Red Cell Distribution Width 13.7 % (11.5-17.5); White Blood Count 8.6 K/mm3 (4.8-10.8)
[2022-02-26 07:51] LABS: Hemoglobin 8.5 g/dL (12.2-16.2)
--- NOTE | 2022-02-26 10:05 | HMH.PTEV ---
Physical Therapy Evaluation Rehab PT IP Evaluation Start: 02/25/22 17:56 Freq: ONCE Status: Active Protocol: Document 02/26/22 09:00 PHOMATT (Rec: 02/26/22 10:05 PHORNE [id number]) Subjective/History History History 56 yoaaf adm to [facility] after fall with comminuted L distal femur fx now S/P ORIF witn NWB precautions. SHe reports she lives with family, has 3 flights of stairs at home, she is generally independent with all mobility without AD. Subjective Subjective Currently L LE is painful as expected post-op. Rehab PT IP Eval Objective Appearance Patient Behavior Appropriate Patient Orientation Person,Place,Time Difficulty following instructions none Speech Pattern Clear Ambulation Patient Able to Ambulate No Balance Ability to Arise Able, uses arms to help Sitting Balance Steady, safe Dynamic Sitting Balance Ability Good Transfers Bed Transfer Ability Moderate x 1 (50% assist) MMT LLE PT MMT ABN Abnormal MMT Grade grossly 2/5 Rehab PT IP prob,goals,plan Problems Date of Evaluation: 02/26/22 PT IP Problems Bed Mobility,Transfers,Self care Rehab Potential Rehab Potential Good Plan PT Intervention Plan Bed Mobility,Transfers,Gait, Balance,Self care,Therapeutic Exercise PT Plan Frequency BID Duration LOS Discharge Goals Bed Transfer Ability Minimal x 1 (25% assist) Sit to Stand Chair Transfer Ability Maximum x 1 (75% assist) Ambulation Assistive Device Standard Walker Ambulation Distance (feet) 2 Discharge Plan PT Discharge Plan Pt is most appropriate for rehab placement once medically stable. If she returns home she will be at significant risk for falls, debility, injury, or further medical complications. G -code Required No Eval Complexity Eval Charge Codes 68998 - High Complexity PHYSICIAN CERTIFICATION: I certify the specified therapy services for Bhavani Camargo are required, authorized, and reviewed every 30 days.
--- NOTE | 2022-02-26 10:08 | EXP.ORTH.PN ---
Subjective *Date: 02/26/22 *Time: 10:36 Interval history: Ms. Camargo is a 56 year old female who underwent open reduction internal fixation of her left distal femur fracture yesterday 02/25/[address] Herrera. Today the patient is postop day #1. This morning the patient is lying comfortably in bed. She reports some pain in her left thigh but states that it is improved compared to prior to surgery. She states that she has been eating and drinking well denies any episodes of nausea or vomiting. She reports that she was seen by therapy this morning and was able to briefly set at the side of the bed. No history of any fevers, chills, rigors, or distal tingling/numbness. She denies any other symptoms or concerns at this time. Ortho Exam (Inpt) Vital signs and Labs for Last 24 Hours: Temp Pulse Resp BP Pulse Ox 100.5 F H 127 H 18 108/73 L 100 02/26/22 08:00 02/26/22 08:00 02/26/22 09:47 02/26/22 08:00 02/26/22 08:00 Laboratory Results - last 24 hr 02/25/22 11:04: POC Glucose 306 H* 02/25/22 17:50: POC Glucose 282 H 02/25/22 19:57: POC Glucose 329 H* 02/26/22 06:23: POC Glucose 279 H 02/26/22 06:50: WBC 8.6, RBC 2.82 L, Hgb 8.5 L D, Hct 25.4 L, MCV 90.2, MCH 30.1, MCHC 33.3, RDW 13.7, Plt Count 169 D, MPV 9.8, Neut % (Auto) 74.5, Lymph % (Auto) 20.9, Wilkin % (Auto) 3.8, Eos % (Auto) 0.4, Baso % (Auto) 0.4, Neut # (Auto) 6.4, Lymph # (Auto) 1.8, Wilkin # (Auto) 0.3, Eos # (Auto) 0.0, Baso # (Auto) 0.0 02/26/22 06:50: Sodium 134 L, Potassium 3.9, Chloride 100, Carbon Dioxide 29, Anion Gap 8.9, BUN 26 H D, Creatinine 1.30 H D, Estimated Creat Clear 95, Estimated GFR 42 L, Est GFR ( Amer) 51 L D, Glucose 238 H D, Calcium 7.5 L 02/26/22 06:50: Lactate 1.0 I & O for Labs for Last 24 Hours: Intake & Output 02/23/22 02/24/22 02/25/22 02/26/22 23:59 23:59 23:59 23:59 Intake Total 2310 / 2310 1311 / 1311 Output Total 700 / 700 425 / 425 Balance 1610 / 1610 886 / 886 Weight 250 lb 264 lb 0.325 oz 274 lb Head: Present normocephalic and atraumatic Eyes: Present as per HPI ENT: Present normal exam Neck: Present normal inspection, full ROM and trachea midline; Absent lymphadenopathy Respiratory: Present normal respiratory effort, able to speak in complete sentences and symmetric chest movement; Absent accessory muscle use Cardiac: Present Reg Rate and Rhythm GI: Present soft; Absent tenderness Comment:: Upon examination of the left leg/lower extremity: Surgical dressings present over the left thigh are clean, dry, and intact. No evidence of drainage or bleeding noted. The distal femur is tender to palpation. Attempted movements of the left leg are somewhat painful. Thigh and calf are soft nontender; Homans' sign is negative. No clinical evidence of DVT or compartment syndrome noted. Posterior tibial pulse 1+; capillary refill is brisk. Distal neurovascular status is intact. Sensation to light touch is grossly intact throughout. Patient is actively mobilizing the foot, ankle, and toes. Skin: Present intact, warm and normal turgor; Absent cyanosis, erythema, lesions or jaundice Neuro: Present Cranial Nerve 2-12 Intact, Motor Function Intact, Sensory Function Intact, alert, awake, oriented x 3, tone normal and moves all extremities; Absent Numbness or Tingling Assessment and Plan *Assessment and plan (1) Closed fracture of left distal femur: Status: Acute Category: Medical Code(s): S72.402A - Unspecified fracture of lower end of left femur, initial encounter for closed fracture Plan I have discussed the clinical findings, diagnostic imaging, and intraoperative findings with the patient. She underwent open reduction internal fixation of her severely comminuted left distal femur fracture yesterday 02/25/[address] Herrera. Plan to begin PT/OT today; patient is to remain nonweightbearing on the left lower extremity. Plan for DVT prophylaxis with 325 mg aspirin BID for 6 weeks postoperatively
[2022-02-26 10:31] LABS: Procalcitonin 0.116 ng/mL (0.0-2.0)
--- NOTE | 2022-02-26 10:38 | PC.NURSE ---
1000- PT TRANSPORTED VIA BED TO ROOM 265 ACCOMPANIED BY GLYNN MATHIS AND AMADA MATHIS
[2022-02-26 10:51] LABS: POC Glucose,Bedside 181 (70-110)
--- NOTE | 2022-02-26 11:22 | CARE MANAGER ---
Faxed operative notes and PT notes to [facility].
--- NOTE | 2022-02-26 11:53 | EXP.ACUTE.PN ---
Subjective *Date: 02/26/22 *Time: 20:58 Interval history: Tolerated procedure well. Intermittent fever overnight. Suspected postop fever at this time. No focal sign of infection. Tolerating p.o. intake. Pain stable on current regimen but still severe. Denies chest pain, nausea, vomiting. Nonweightbearing at this time due to extent of damage to left femur Medical Exam Vital signs and Labs for Last 24 Hours: Vital Signs Temp Pulse Pulse Resp BP BP Pulse Ox 02/26/22 09:20 99.5 F 02/26/22 08:00 125 H 100 02/26/22 09:47 18 02/26/22 08:00 100.5 F H 127 H 18 108/73 L 100 02/26/22 07:17 100.1 F H 02/26/22 06:00 101.3 F H 119 H 20 112/58 L 97 02/26/22 04:40 100.2 F H 109 H 15 113/60 99 02/26/22 01:15 99.4 F 105 H 16 115/60 100 02/26/22 00:15 98.2 F 105 H 17 91/53 L 98 02/25/22 20:00 98 02/25/22 23:15 98.1 F 104 H 16 105/66 L 98 02/25/22 22:15 98.4 F 112 H 18 117/61 98 02/25/22 21:15 98.4 F 109 H 17 115/69 99 02/25/22 20:45 98.4 F 121 H 17 139/68 98 02/25/22 20:15 98.4 F 99 H 18 134/72 97 02/25/22 19:45 98.4 F 98 H 17 133/73 98 02/25/22 19:15 102 H 17 137/75 98 02/25/22 19:00 98.4 F 107 H 16 121/72 99 02/25/22 18:10 96 H 20 116/84 98 02/25/22 18:00 93 H 22 129/72 98 02/25/22 17:50 108 H 20 117/63 98 02/25/22 17:40 98.9 F 106 H 20 116/73 99 02/25/22 18:45 99 H 16 137/84 98 02/25/22 18:30 98.5 F 85 18 128/76 100 02/25/22 18:15 98.5 F 99 H 17 131/83 100 02/25/22 17:49 98.9 F 105 H 16 127/82 02/26/22 07:11 98.9 F 96 H 116/84 Intake and Output 02/25/22 02/26/22 02/26/22 23:59 07:59 15:59 Intake Total 1999 1311 / 1311 Output Total 425 / 825 400 / 825 Balance 1999 886 / 486 -400 / 486 Intake: Intake, Oral Amount 222 / 222 Intake, Total IV Amount 1999 1089 / 1089 Cefazolin Sodium 2 gm In 0.9 % 100 / 100 Sodium Chloride 100 ml @ 200 mls/hr IV Q8H [facility] Rx#:[id number] Ringers Solution,Lactated 1,000 989 / 989 ml @ 100 mls/hr IV .Q10H [facility] Rx#:[id number] Output: Output, Urine Amount 400 / 400 Output, Urine Amount (Catheter) 425 / 425 Ashby 425 / 425 Other: Number of Unmeasured Voids 0 Weight 124.284 kg Patient Weight 02/26/22 23:59 Weight 124.284 kg Laboratory Results - last 24 hr 02/25/22 17:50: POC Glucose 282 H 02/25/22 19:57: POC Glucose 329 H* 02/26/22 06:23: POC Glucose 279 H 02/26/22 06:50: WBC 8.6, RBC 2.82 L, Hgb 8.5 L D, Hct 25.4 L, MCV 90.2, MCH 30.1, MCHC 33.3, RDW 13.7, Plt Count 169 D, MPV 9.8, Neut % (Auto) 74.5, Lymph % (Auto) 20.9, [place] % (Auto) 3.8, Eos % (Auto) 0.4, Baso % (Auto) 0.4, Neut # (Auto) 6.4, Lymph # (Auto) 1.8, [place] # (Auto) 0.3, Eos # (Auto) 0.0, Baso # (Auto) 0.0 02/26/22 06:50: Sodium 134 L, Potassium 3.9, Chloride 100, Carbon Dioxide 29, Anion Gap 8.9, BUN 26 H D, Creatinine 1.30 H D, Estimated Creat Clear 95, Estimated GFR 42 L, Est GFR ( Amer) 51 L D, Glucose 238 H D, Calcium 7.5 L 02/26/22 06:50: Lactate 1.0 02/26/22 06:50: Procalcitonin 0.116 02/26/22 10:37: POC Glucose 181 H I & O for Labs for Last 24 Hours: Intake & Output 02/23/22 02/24/22 02/25/22 02/26/22 23:59 23:59 23:59 23:59 Intake Total 2310 / 2310 1311 / 1311 Output Total 700 / 700 825 / 825 Balance 1610 / 1610 486 / 486 Weight 113.398 kg 119.758 kg 124.284 kg Constitutional: Present no acute distress and morbidly obese Head: Present atraumatic and normocephalic ENT: Present normal exam Neck: Present normal inspection Respiratory: Present crackles (Bibasilar crackles) and normal respiratory effort; Absent accessory muscle use, rhonchi or wheezes Cardiac: Present Reg Rate and Rhythm GI: Present soft and normal bowel sounds; Absent distention or tenderness Extremities: Present full ROM Comment::
--- NOTE | 2022-02-26 13:53 | HMH.OTEV ---
OT Inpatient Evaluation Rehab OT IP Evaluation Start: 02/26/22 11:12 Freq: ONCE Status: Active Protocol: Document 02/26/22 13:47 [facility] (Rec: 02/26/22 13:53 [facility] [id number]) Rehab OT IP Assessment Subjective History Pt oriented x 4 on arrival. Pt agreeable to engage in therapy evaluation. Pt was admitted on 02/24/22 due to a fall resulting in a left femur fx. On 02/25/22 pt required a Open reduction internal fixation to left distal femur. Pt reports prior to being in the hospital she lived at home with her and son. Pt reports she was independent with all ADLs and IADLs. Pt still worked fulltime at [employer]. Pt did not require any type of AE during ADLs or ambulation. Pt also still drove. Pt has a past medical history of: Diabetes Hypertension Hypertension Subjective I am in a lot of pain. Objective Patient Orientation Person,Place,Birthday,Year Upper Extremity Gross ROM WFL Bed Mobility bed mobility-scooting,bed mobility - supine/sit,bed mobility - rolling Assist Level Maximum x 1 (75% assist) Rehab OT IP prob,goals,plan Problems Date of Evaluation: 02/26/22 OT IP Problems Bed Mobility,Transfers,Balance ,Self care,Safety Rehab Potential Rehab Potential Good Equipment Needs Assistive Devices Rolling / Wheeled Walker Plan OT intervention Plan Bed Mobility,Transfers,Balance ,Self care,Safety,Therapeutic Exercise OT Plan Frequency BID Duration LOS Discharge Goals Bed Mobility Ability Assistance x1 Sit to Stand Chair Transfer Ability Moderate x 1 (50% assist) Chair Transfer Ability Moderate x 1 (50% assist) Chair Transfer Technique Stand Step Pivot Chair Transfer Assistive Devices Rolling Walker Feeding Ability Assist with Tray Set Up Lower Body Dressing Ability Standby Assistance Upper Body Dressing Ability Standby Assistance Bathing A
--- NOTE | 2022-02-26 14:09 | CARE MANAGER ---
Faxed OT note to [facility].
[2022-02-26 16:10] LABS: POC Glucose,Bedside 235 (70-110)
[2022-02-26 20:57] LABS: Adenovirus,PCR Not Detected (NotDetected); Bordetella Pertussis Not Detected (NotDetected); Chlamydophila Pneumoniae, PCR Not Detected (NotDetected); Coronavirus 19, PCR Not Detected (NotDetected); Coronavirus 229E Not Detected (NotDetected); Coronavirus NL63 Not Detected (NotDetected); Coronavirus OC43 Not Detected (NotDetected); Coronovirus HKU1,PCR Not Detected (NotDetected); Human Metapneumovirus Not Detected (NotDetected); Influenza A, PCR Not Detected (NotDetected); Influenza AH1, 2009 Not Detected (NotDetected); Influenza AH1, PCR Not Detected (NotDetected); Influenza AH3,PCR Not Detected (NotDetected); Influenza B, PCR Not Detected (NotDetected); Mycoplasma Pneumoniae, PCR Not Detected (NotDetected); Parainfluenza 1, PCR Not Detected (NotDetected); Parainfluenza 2, PCR Not Detected (NotDetected); Parainfluenza 3, PCR Not Detected (NotDetected); Parainfluenza 4, PCR Not Detected (NotDetected); Respiratory Syncytial Virus Not Detected (NotDetected); Rhinovirus/Enterovirus Not Detected (NotDetected)
[2022-02-26 22:11] LABS: POC Glucose,Bedside 223 (70-110)
[2022-02-27] VITALS (7 sets, daily range): BP systolic 102–123; BP diastolic 53–78; PULSE 90–114; RESP 16–20; TEMP 36.9–37.8; O2SAT 94–99; BMI 46.7; BMI 46.6
[2022-02-27 06:01] LABS: POC Glucose,Bedside 175 (70-110)
--- NOTE | 2022-02-27 06:17 | PC.NURSE ---
pt has rested well through the night after dilaudid given, pt has been febrile with temp 99-100.3; dressing to left hip cdi, f/c to bsd with cyu noted, pt encouraged i/s use, and turn q2, pt is alert and oriented x4, no acute distress noted.
--- NOTE | 2022-02-27 07:53 | CARE MANAGER ---
Emmy from [facility] requesting vitals and labs, faxed.
--- NOTE | 2022-02-27 09:10 | EXP.ORTH.PN ---
Subjective *Date: 02/27/22 *Time: 09:10 Interval history: Patient is doing OK. Pain is controlled with meds. No new complaints. Has been on bed rest activity. Ortho Exam (Inpt) Vital signs and Labs for Last 24 Hours: Temp Pulse Resp BP Pulse Ox 99.9 F H 114 H 16 119/68 99 02/27/22 03:41 02/27/22 03:41 02/27/22 03:41 02/27/22 03:41 02/27/22 03:41 Laboratory Results - last 24 hr 02/26/22 06:50: Procalcitonin 0.116 02/26/22 10:37: POC Glucose 181 H 02/26/22 16:04: POC Glucose 235 H 02/26/22 18:15: Chlamy pneumoniae PCR Not detected, Adenovirus (PCR) Not detected, B. pertussis DNA (PCR) Not detected, Coronavirus OC43 (PCR) Not detected, Coronavirus HKU1 (PCR) Not detected, Coronavirus 229E (PCR) Not detected, SARS-CoV-2 (PCR) Not detected, Coronavirus NL63 (PCR) Not detected, Human Metapneumovir PCR Not detected, Influenza A (H1) PCR Not detected, Influ A (H1N1/09) PCR Not detected, Influenza A (H3) PCR Not detected, Influenza Type A (PCR) Not detected, Influenza Type B (PCR) Not detected, M. pneumoniae (PCR) Not detected, Parainfluenza 1 (PCR) Not detected, Parainfluenza 2 (PCR) Not detected, Parainfluenza 3 (PCR) Not detected, Parainfluenza 4 (PCR) Not detected, RSV (PCR) Not detected, Entero/Rhino (PCR) Not detected 02/26/22 22:05: POC Glucose 223 H 02/27/22 05:53: POC Glucose 175 H I & O for Labs for Last 24 Hours: Intake & Output 02/24/22 02/25/22 02/26/22 02/27/22 23:59 23:59 23:59 23:59 Intake Total 2310 / 2310 2151 / 2151 Output Total 700 / 700 1525 / 1525 900 / 900 Balance 1610 / 1610 626 / 626 -900 / -900 Weight 250 lb 264 lb 0.325 oz 274 lb 274 lb 2 oz Comment:: LEFT LE: Surgical dressing clean dry and intact. Distal pulses intact. Compartments soft. Assessment and Plan *Assessment and plan (1) Closed fracture of left distal femur: Problem Comment: S/P ORIF Status: Acute Category: Medical Code(s): S72.402A - Unspecified fracture of lower end of left femur, initial encounter for closed fracture Plan Patient doing OK. Will require placement for rehab given nature of fracture and protected weight bearing. Can work with PT for safe transfers to chair as pain allows. Remain NWB LLE. Add oral pain medications and wean IV pain medications.
[2022-02-27 09:34] LABS: Basophils % 0.3 % (0.1-2.0); Eosinophils # 0.2 K/mm3 (0.0-0.4); Eosinophils % 1.8 % (0.1-12.0); Hematocrit 25.8 % (37.0-47.0); Hemoglobin 8.4 g/dL (12.2-16.2); Lymphocytes # 1.6 K/mm3 (0.7-4.5); Lymphocytes % 19.3 % (10-50); Mean Corpuscular HGB Conc 32.4 g/dL (31.8-35.4); Mean Corpuscular Hemoglobin 29.4 pg (27.0-31.2); Mean Corpuscular Volume 90.7 fl (81-99); Mean Platelet Volume 9.5 fl (7.4-10.4); Monocytes # 0.5 K/mm3 (0.1-1.0); Monocytes % 5.9 % (1.7-9.3); Neutrophils # 5.9 K/mm3 (1.8-7.8); Neutrophils % 72.7 % (37.0-80.0); Platelet Count 182 K/mm3 (142-424); Red Blood Count 2.85 M/mm3 (4.20-5.40); Red Cell Distribution Width 13.6 % (11.5-17.5); White Blood Count 8.1 K/mm3 (4.8-10.8)
[2022-02-27 09:45] LABS: Chloride 100 mmol/L (98-107); Potassium 3.6 mmoL/L (3.5-5.1); Sodium 135 mmol/L (136-145)
[2022-02-27 09:48] LABS: Anion Gap 8.6 mEq/L (5-15); Blood Urea Nitrogen 17 mg/dl (7-17); Carbon Dioxide 30 mmol/L (22.0-30.0); Creatinine Clearance Estimated 54 mL/min (50-200); Estimated Glomerular Filt Rate 57 ml/min (>60); GFR (African American) 69 ML/MIN (>60); Glucose 162 mg/dl (74-100)
[2022-02-27 10:27] LABS: POC Glucose,Bedside 150 (70-110)
--- NOTE | 2022-02-27 15:27 | CARE MANAGER ---
Emmy from [facility] called and has accepted this patient for admit in the am. Numbers were given to the nurses (Yris) for report and fax number to send discharge summary. Dr. Kowalski was notified as well.
--- NOTE | 2022-02-27 15:48 | EXP.ACUTE.PN ---
Subjective *Date: 02/27/22 *Time: 20:04 Interval history: Continues to have temperatures, reviewed chest imaging, concern for possible pneumonia. No other source of infection. Tolerating pain medication IV, transitioning to oral today. Still no bowel movement since admission. Denies nausea or vomiting. Tolerating p.o. intake. No shortness of breath today, weaned off oxygen this morning. Denies confusion or chest pain. Medical Exam Vital signs and Labs for Last 24 Hours: Vital Signs Temp Pulse Resp BP Pulse Ox 02/27/22 11:09 98.5 F 94 H 16 120/78 96 02/27/22 08:00 100.1 F H 97 H 18 102/53 L 94 L 02/27/22 08:00 96 02/27/22 09:48 19 02/27/22 03:41 99.9 F H 114 H 16 119/68 99 02/27/22 00:00 97 02/26/22 20:00 100 02/26/22 20:41 100 02/26/22 22:41 97 02/26/22 20:00 100.3 F H 111 H 18 147/65 H 100 02/26/22 16:00 99.8 F H 116 H 20 102/56 L 98 Intake and Output 02/26/22 02/27/22 02/27/22 23:59 07:59 15:59 Intake Total 480 / 2151 360 / 360 Output Total 700 / 1525 900 / 900 Balance -220 / 626 -900 / -540 360 / -540 Intake: Intake, Oral Amount 480 / 1062 360 / 360 Output: Output, Urine Amount 0 / 400 900 / 900 Output, Urine Amount (Catheter) 700 / 1125 Ashby 700 / 1125 Other: Number of Unmeasured Voids 0 0 Weight 124.341 kg Patient Weight 02/27/22 23:59 Weight 124.341 kg Laboratory Results - last 24 hr 02/26/22 16:04: POC Glucose 235 H 02/26/22 18:15: Chlamy pneumoniae PCR Not detected, Adenovirus (PCR) Not detected, B. pertussis DNA (PCR) Not detected, Coronavirus OC43 (PCR) Not detected, Coronavirus HKU1 (PCR) Not detected, Coronavirus 229E (PCR) Not detected, SARS-CoV-2 (PCR) Not detected, Coronavirus NL63 (PCR) Not detected, Human Metapneumovir PCR Not detected, Influenza A (H1) PCR Not detected, Influ A (H1N1/09) PCR Not detected, Influenza A (H3) PCR Not detected, Influenza Type A (PCR) Not detected, Influenza Type B (PCR) Not detected, M. pneumoniae (PCR) Not detected, Parainfluenza 1 (PCR) Not detected, Parainfluenza 2 (PCR) Not detected, Parainfluenza 3 (PCR) Not detected, Parainfluenza 4 (PCR) Not detected, RSV (PCR) Not detected, Entero/Rhino (PCR) Not detected 02/26/22 22:05: POC Glucose 223 H 02/27/22 05:53: POC Glucose 175 H 02/27/22 09:15: WBC 8.1, RBC 2.85 L, Hgb 8.4 L, Hct 25.8 L, MCV 90.7, MCH 29.4, MCHC 32.4, RDW 13.6, Plt Count 182, MPV 9.5, Neut % (Auto) 72.7, Lymph % (Auto) 19.3, [place] % (Auto) 5.9, Eos % (Auto) 1.8, Baso % (Auto) 0.3, Neut # (Auto) 5.9, Lymph # (Auto) 1.6, [place] # (Auto) 0.5, Eos # (Auto) 0.2, Baso # (Auto) 0.0 02/27/22 09:15: Sodium 135 L, Potassium 3.6, Chloride 100, Carbon Dioxide 30, Anion Gap 8.6, BUN 17 D, Creatinine 1.00 D, Estimated Creat Clear 54, Estimated GFR 57 L, Est GFR ( Amer) 69 D, Glucose 162 H, Calcium 8.0 L 02/27/22 10:20: POC Glucose 150 H I & O for Labs for Last 24 Hours: Intake & Output 02/24/22 02/25/22 02/26/22 02/27/22 23:59 23:59 23:59 23:59 Intake Total 2310 / 2310 2151 / 2151 360 / 360 Output Total 700 / 700 1525 / 1525 900 / 900 Balance 1610 / 1610 626 / 626 -540 / -540 Weight 113.398 kg 119.758 kg 124.284 kg 124.341 kg Constitutional: Present no acute distress and morbidly obese Head: Present atraumatic and normocephalic ENT: Present normal exam Neck: Present normal inspection Respiratory: Present crackles (Bibasilar crackles) and normal respiratory effort; Absent accessory muscle use, rhonchi or wheezes Cardiac: Present Reg Rate and Rhythm GI: Present soft and normal bowel sounds; Absent distention or tenderness Extremities: Present full ROM Comment:: Left leg we will length right now, postop bandage over distal left thigh Skin: Present intact; Absent erythema Neuro: Present Grossly Intact, alert, awake, oriented x 3 and moves all extremities Assessment and Plan *Assessment and plan (1) Closed fracture of left distal femur: Pro
[2022-02-27 16:41] LABS: POC Glucose,Bedside 184 (70-110)
--- NOTE | 2022-02-27 18:56 | PC.NURSE ---
Pt currently sitting up in bed w/ family at bedside. A&O x4. HR reg. Lungs CTA. Abdomen soft, non-tender w/ active BS in all quads. No BM this shift. aware of this and will be placing orders. Ashby cath dc'd this shift, pt has voided once thus far w/o difficulty. Dressing to L hip c/d/i. IPCS in place to RLE. +2 edema noted to BLE. Pt bathed and linens changed. Medicated per APR for pain w/ favorable results. Plan is for pt to be DC'd to [facility] tomorrow. She is currently resting in bed watching TV. No needs voiced. Call pepe w/in reach.
[2022-02-27 22:35] LABS: POC Glucose,Bedside 261 (70-110)
[2022-02-28] VITALS: BP 116/68; PULSE 106; RESP 18; TEMP 36.9; O2SAT 92
[2022-02-28 04:00] VITALS: BP 118/67; PULSE 101; RESP 20; TEMP 36.9; O2SAT 99; BMI 45.8
[2022-02-28 06:03] LABS: POC Glucose,Bedside 170 (70-110)
[2022-02-28 07:02] LABS: Basophils % 0.4 % (0.1-2.0); Eosinophils # 0.3 K/mm3 (0.0-0.4); Eosinophils % 4.8 % (0.1-12.0); Hematocrit 24.9 % (37.0-47.0); Hemoglobin 8.2 g/dL (12.2-16.2); Lymphocytes # 1.5 K/mm3 (0.7-4.5); Lymphocytes % 22.5 % (10-50); Mean Corpuscular HGB Conc 33.1 g/dL (31.8-35.4); Mean Corpuscular Hemoglobin 29.6 pg (27.0-31.2); Mean Corpuscular Volume 89.4 fl (81-99); Mean Platelet Volume 9.5 fl (7.4-10.4); Monocytes # 0.5 K/mm3 (0.1-1.0); Monocytes % 7.2 % (1.7-9.3); Neutrophils # 4.3 K/mm3 (1.8-7.8); Platelet Count 185 K/mm3 (142-424); Red Blood Count 2.78 M/mm3 (4.20-5.40); Red Cell Distribution Width 13.3 % (11.5-17.5); White Blood Count 6.7 K/mm3 (4.8-10.8)
[2022-02-28 07:07] LABS: Chloride 100 mmol/L (98-107); Potassium 3.6 mmoL/L (3.5-5.1); Sodium 137 mmol/L (136-145)
--- NOTE | 2022-02-28 07:09 | PC.NURSE ---
Pt a/o x4. Pt c/o pain in left leg 1x. PO PRN pain medication administered. DSG CDI. Call light within reach.
[2022-02-28 07:10] LABS: Alanine Aminotransferase 60 U/L (12-78); Albumin Level 2.9 g/dl (3.5-5.0); Albumin/Globulin Ratio 1.1 (1.1-1.8); Alkaline Phosphatase 143 U/L (38-126); Anion Gap 8.6 mEq/L (5-15); Aspartate Amino Transferase 87 U/L (14-36); Bilirubin,Total 0.7 mg/dl (0.2-1.3); Blood Urea Nitrogen 14 mg/dl (7-17); Carbon Dioxide 32 mmol/L (22.0-30.0); Creatinine Clearance Estimated 60 mL/min (50-200); Estimated Glomerular Filt Rate 65 ml/min (>60); GFR (African American) 78 ML/MIN (>60); Globulin 2.7 g/dL (1.3-3.2); Total Protein,Serum 5.6 g/dl (6.3-8.2)
[2022-02-28 07:11] LABS: Calcium 8.2 mg/dl (8.4-10.2); Glucose 168 mg/dl (74-100)
--- NOTE | 2022-02-28 07:17 | EXP.DC.SUM ---
General Admission date:: 02/24/22 Discharge date: 02/28/22 HPI HPI HPI: Ms. Camargo is a 56-year-old female with a past medical history that is positive for HTN, DM and Obesity. She presents to due to a fall on ice at ground level that occurred approximately a couple hours prior to presentation. The patient stated she was walking outside and slipped and fell, she had her phone with her. She reports that she was unable to bear weight and she fell on her right side with her left leg twisted underneath her. In the ER, the patient had multiple imaging that showed an acute, communited posterior displaced fracture of the distal left femur. EKG showed NSR with rate of [address] segment elevation or depression. CBC and CMP were unremarkable. The patient will be admitted with initial impression: Acute Comminuted Posterior Distal Fracture of the distal left femur. Orthopaedics was consulted to see the patient, she will be placed on a pain regime. Hospital Course Hospital Course Hospital Course: 56-year-old female with past medical history of DM, HTN, Obesity presents following a fall at ground level on the ice, imaging shows an acute comminuted posteriorly displaced fracture of the distal left femur, Orthopaedics consulted.? Patient currently n.p.o., awaiting surgery.? Problems addressed as follows: - Left Femur Fracture Orthopedics consulted, appreciate their recommendations and assistance with care. Surgical fixation of left femur fracture performed on 02/25. See op note for full details. Given extent of injury and fragmentation of bone, patient is nonweightbearing per orthopedic recommendations. Pain managed with ice, opiates (oral for over 24 hours prior to discharge). PT and OT evaluated during admission. Has been graciously excepted by [facility] for rehab. Recommend continuing aspirin 325 mg twice daily for DVT prophylaxis for 6 weeks. Patient stable for discharge to rehab for next level of care. - Fever -Suspected pneumonia Unclear etiology, initially had mild oxygen requirement and fever after surgery. Chest imaging with atelectasis versus pneumonia. Started empirically on ceftriaxone, able to wean off oxygen soon thereafter. Stable on room air for 48 hours prior to discharge. Will complete empiric course with cefdinir as she has had defervescence of fever since initiation of empiric ceftriaxone as well. 5 more days of oral antibiotics - Diabetes: A1c obtained, 10.7 at admission. Poorly controlled on home regimen. Initiated on insulin glargine 15 units nightly along with sliding Scale insulin with fingersticks ACHS during admission. Recommend continuing insulin glargine nightly and resuming remainder of home regimen. Further management/adjustment to regimen deferred to PCP/next level of care. Needs repeat A1c in 3 months. - Hypertension: Controlled during admission, continue home regimen at discharge - Obesity Complicates care, BMI 42.9 - Constipation Initiate aggressive bowel regimen, achieved bowel movement prior to discharge. Exam Data for Last 24 hours Vital signs and Labs for Last 24 Hours: Temp Pulse Resp BP Pulse Ox 98.5 F 101 H 20 118/67 99 02/28/22 04:00 02/28/22 04:00 02/28/22 04:00 02/28/22 04:00 02/28/22 04:00 Laboratory Results - last 24 hr 02/27/22 09:15: WBC 8.1, RBC 2.85 L, Hgb 8.4 L, Hct 25.8 L, MCV 90.7, MCH 29.4, MCHC 32.4, RDW 13.6, Plt Count 182, MPV 9.5, Neut % (Auto) 72.7, Lymph % (Auto) 19.3, [place] % (Auto) 5.9, Eos % (Auto) 1.8, Baso % (Auto) 0.3, Neut # (Auto) 5.9, Lymph # (Auto) 1.6, [place] # (Auto) 0.5, Eos # (Auto) 0.2, Baso # (Auto) 0.0 02/27/22 09:15: Sodium 135 L, Potassium 3.6, Chloride 100, Carbon Dioxide 30, Anion Gap 8.6, BUN 17 D, Creatinine 1.00 D, Estimated Creat Clear 54, Estimated GFR 57 L, Est GFR ( Amer) 69 D, Glucose 162 H, Calcium 8.0 L 02/27/22 10:20: POC Glucose 150 H 02/27/22 16:34: POC Glucose 184 H
--- NOTE | 2022-02-28 07:38 | P.PN_ITS ---
Subjective *Date: 02/28/22 *Time: 07:38 Interval history: Patient doing better. Up eating breakfast. No new complaints. Pain controlled with meds. Ortho Exam (Inpt) Vital signs and Labs for Last 24 Hours: Temp Pulse Resp BP Pulse Ox 98.5 F 101 H 20 118/67 99 02/28/22 04:00 02/28/22 04:00 02/28/22 04:00 02/28/22 04:00 02/28/22 04:00 Laboratory Results - last 24 hr 02/27/22 09:15: WBC 8.1, RBC 2.85 L, Hgb 8.4 L, Hct 25.8 L, MCV 90.7, MCH 29.4, MCHC 32.4, RDW 13.6, Plt Count 182, MPV 9.5, Neut % (Auto) 72.7, Lymph % (Auto) 19.3, [place] % (Auto) 5.9, Eos % (Auto) 1.8, Baso % (Auto) 0.3, Neut # (Auto) 5.9, Lymph # (Auto) 1.6, [place] # (Auto) 0.5, Eos # (Auto) 0.2, Baso # (Auto) 0.0 02/27/22 09:15: Sodium 135 L, Potassium 3.6, Chloride 100, Carbon Dioxide 30, Anion Gap 8.6, BUN 17 D, Creatinine 1.00 D, Estimated Creat Clear 54, Estimated GFR 57 L, Est GFR ( Amer) 69 D, Glucose 162 H, Calcium 8.0 L 02/27/22 10:20: POC Glucose 150 H 02/27/22 16:34: POC Glucose 184 H 02/27/22 21:48: POC Glucose 261 H 02/28/22 05:56: POC Glucose 170 H 02/28/22 06:50: WBC 6.7, RBC 2.78 L, Hgb 8.2 L, Hct 24.9 L, MCV 89.4, MCH 29.6, MCHC 33.1, RDW 13.3, Plt Count 185, MPV 9.5, Neut % (Auto) 65.0, Lymph % (Auto) 22.5, [place] % (Auto) 7.2, Eos % (Auto) 4.8, Baso % (Auto) 0.4, Neut # (Auto) 4.3, Lymph # (Auto) 1.5, [place] # (Auto) 0.5, Eos # (Auto) 0.3, Baso # (Auto) 0.0 02/28/22 06:50: Sodium 137, Potassium 3.6, Chloride 100, Carbon Dioxide 32 H, Anion Gap 8.6, BUN 14, Creatinine 0.90, Estimated Creat Clear 60, Estimated GFR 65, Est GFR ( Amer) 78, Glucose 168 H, Calcium 8.2 L, Total Bilirubin 0.7, AST 87 H D, ALT 60 D, Alkaline Phosphatase 143 H, Total Protein 5.6 L, Albumin 2.9 L, Globulin 2.7, Albumin/Globulin Ratio 1.1 I & O for Labs for Last 24 Hours: Intake & Output 02/25/22 02/26/22 02/27/22 02/28/22 23:59 23:59 23:59 23:59 Intake Total 2310 / 2310 2151 / 2151 650 / 770 120 / 120 Output Total 700 / 700 1525 / 1525 1600 / 1850 550 / 550 Balance 1610 / 1610 626 / 626 -950 / -1080 -430 / -430 Weight 264 lb 0.325 oz 274 lb 273 lb 5.971 oz 268 lb 9 oz Microbiology Reports for the Last 24 Hours: Microbiology 02/26/22 06:50 Blood Blood Culture - Preliminary NO GROWTH AFTER 48 HOURS 02/26/22 06:50 Blood Blood Culture - Preliminary NO GROWTH AFTER 48 HOURS Comment:: LEFT LE: dressing intact. Compartments soft. Assessment and Plan *Assessment and plan (1) Closed fracture of left distal femur: Problem Comment: S/P ORIF Status: Acute Category: Medical Code(s): S72.402A - Unspecified fracture of lower end of left femur, initial encounter for closed fracture Plan Patient doing well. Stable for transfer to rehab. Remain NWB on LLE on walker. Followup in clinic in 2 weeks for staple removal or have anabell removed in 2 weeks at rehab depending on placement. Daily dressing changes.
[2022-02-28 08:37] VITALS: BP 106/68; PULSE 114; RESP 18; TEMP 36.8; O2SAT 95
--- NOTE | 2022-02-28 12:07 | PC.NURSE ---
PT EILL BE DISCHARGED TO [facility]. PT IS VERY ANXIOUS TO GET THERE AND GET HER REHAB STARTED. PT HAS A FLEETS ENEMA THIS MORNING STILL HAS NOT HAD A BOWEL MOVEMENT BUT HAS BEEN PASSING FLATUS. PT HAD A BED BATH PER NURSING STAFF AT 1130. DRESSING TO THE LEFT HIP WAS CHANGED. REPORT CALLED TO ENRIQUETA AT [facility]. DISCHARGE SUMMARY FAXED. AMBULANCE CALLED FOR TRANSFER.
[2022-03-01 10:01] LABS: POC Glucose,Bedside 285 (70-110)
== END 2022-02-28 15:55 | DRG 480 ==
LOC: ER 18:52 → 2ND 22:17 → OB 02-25 01:38 → 2ND 02-25 10:33 → ICU 02-26 10:27
PROVIDERS: Nurse Practitioner Family; Orthopaedic Surgery; Admitting Provider Internal Medicine Adolescent Medicine; Emergency Provider Emergency Medicine; PCP Family Medicine; Visit Provider Internal Medicine Adolescent Medicine
PROC: 0QSC04Z Reposition Left Lower Femur with Internal Fixation Device, Open Approach (ICD-10-PCS; principal; 2022-02-25 13:00)
DX: S72.402A Unspecified fracture of lower end of left femur, initial encounter for closed fracture (principal); J18.9 Pneumonia, unspecified organism; Z68.42 Body mass index [BMI] 45.0-49.9, adult; W01.0XXA Fall on same level from slipping, tripping and stumbling without subsequent striking against object, initial encounter; Z79.84 Long term (current) use of oral hypoglycemic drugs; I10 Essential (primary) hypertension; E11.9 Type 2 diabetes mellitus without complications; E66.01 Morbid (severe) obesity due to excess calories; K59.00 Constipation, unspecified
CPT/HCPCS: 27514; 36415; 71045; 73502; 73552; 73562; 73590; 80048; 80053; 81001; 82962; 83036; 83605; 83735; 84145; 85025; 85610; 87040; 87581; 87632; 87798; 93005; 94760; 94761; 97163; 97167; 97530; 99285; C1713; C1776; C9803; J0696; J2405; J2505; U0003; U0005

== ENCOUNTER → 2022-03-24 14:02 | Outpatient (CLI) | payer BC, SELFPAY ==
--- NOTE | 2022-03-24 14:11 | XR_ITS ---
FINAL REPORT CLINICAL HISTORY: femur fracture COMPARISON: 02/24/2022 FINDINGS: Left femur Two views were obtained. There has been been interval post ORIF changes of a severely comminuted fracture of the distal femur. The alignment is normal. The hardware is unremarkable. IMPRESSION: Interval post ORIF changes. No bony healing is evident at this time. Reviewed, Interpreted and Dictated by Lissa Machado MD Transcribed by Ashlie Feldman Authenticated and . [facility]
== END ==
PROVIDERS: PCP Family Medicine; Visit Provider Orthopaedic Surgery
DX: S72.402A Unspecified fracture of lower end of left femur, initial encounter for closed fracture (principal)
CPT/HCPCS: 73552

== ENCOUNTER → 2022-04-23 13:07 | Outpatient (CLI) | payer BC, SELFPAY ==
--- NOTE | 2022-04-23 13:16 | XR_ITS ---
FINAL REPORT CLINICAL HISTORY: fx in left leg COMPARISON: 03/24/2022 FINDINGS: LEFT FEMUR AP and lateral views of the left femur were obtained. There is a comminuted fracture of the distal femur with postoperative changes of ORIF. There has been no significant interval change. Soft tissues are unremarkable. IMPRESSION: No significant interval change and left femoral fracture and ORIF. Reviewed, Interpreted and Dictated by Sreedhar Kong III, MD Transcribed by Jamila Solis Authenticated and . [facility]
== END ==
PROVIDERS: PCP Family Medicine; Visit Provider Orthopaedic Surgery
DX: S72.402A Unspecified fracture of lower end of left femur, initial encounter for closed fracture (principal)
CPT/HCPCS: 73552

== ENCOUNTER → 2022-05-21 13:01 | Outpatient (CLI) | payer BC, SELFPAY ==
--- NOTE | 2022-05-21 13:09 | XR_ITS ---
FINAL REPORT CLINICAL HISTORY: fracture COMPARISON: 04/23/2022 FINDINGS: Left femur Two views were obtained. There are sideplate and screws securing a healing comminuted displaced fracture of the distal femoral metadiaphysis. There has been progressive callus formation. There is mild narrowing of the medial compartment joint space. Sideplate and screws are seen securing the proximal tibia. IMPRESSION: Healing comminuted displaced fracture of the distal femoral metadiaphysis. Reviewed, Interpreted and Dictated by Nahid Wright MD Transcribed by Ashlie Feldman Authenticated and [facility]
== END ==
PROVIDERS: PCP Family Medicine; Visit Provider Orthopaedic Surgery
DX: S72.402A Unspecified fracture of lower end of left femur, initial encounter for closed fracture (principal)
CPT/HCPCS: 73552

== ENCOUNTER → 2022-06-30 12:39 | Outpatient (CLI) | payer BC, SELFPAY ==
--- NOTE | 2022-06-30 12:44 | XR_ITS ---
FINAL REPORT CLINICAL HISTORY: left femur fx in jan 2022..lower knee surgery 2019 COMPARISON: 05/21/2022 FINDINGS: LEFT FEMUR Two views were obtained. There are sideplate and screws securing a healing comminuted displaced fracture of the distal femoral metadiaphysis. There has been progressive callus formation. There is mild narrowing of the medial compartment joint space. Orthopedic hardware is seen securing the proximal tibia. IMPRESSION: Healing comminuted displaced fracture of the distal femoral metadiaphysis. Reviewed, Interpreted and Dictated by Nahid Wright MD Transcribed by Radha Durand Authenticated and . [facility]
== END ==
PROVIDERS: PCP Family Medicine; Visit Provider Orthopaedic Surgery
DX: S72.402A Unspecified fracture of lower end of left femur, initial encounter for closed fracture (principal)
CPT/HCPCS: 73552

== ENCOUNTER → 2022-07-28 13:19 | Outpatient (CLI) | payer BC, SELFPAY ==
--- NOTE | 2022-07-28 13:29 | XR_ITS ---
FINAL REPORT CLINICAL HISTORY: left femur fx COMPARISON: 06/30/2022 FINDINGS: Left femur: Multiple views of the left femur reveal a normal contour of the proximal femur and hip joint. There is a comminuted healing distal femoral fracture, metadiaphyseal, with orthopedic instrumentation bridging the fracture fragments. No change is noted in the alignment of the fracture fragments since June 30. IMPRESSION: Comminuted healing distal femoral fracture unchanged since June 30. Reviewed, Interpreted and Dictated by Nahid Wright MD Transcribed by Fely Mcdonough Authenticated and [facility]
== END ==
PROVIDERS: PCP Family Medicine; Visit Provider Orthopaedic Surgery
DX: S72.402A Unspecified fracture of lower end of left femur, initial encounter for closed fracture (principal)
CPT/HCPCS: 73552

== ENCOUNTER 2022-08-20 09:00 | Outpatient (RCR) | payer BC, OTHER, SELFPAY ==
--- NOTE | 2022-06-09 12:02 | HMH.PTOPEV ---
PT Outpatient Evaluation Rehab PT Outpatient Evaluation Start: 06/09/22 11:02 Freq: Status: Active Protocol: Document 06/09/22 11:02 [facility] (Rec: 06/09/22 12:02 KATHLEEN [id number]) E-signed By Eli García, PT Outpatient Therapy Subjective History Subjective History Pt is a 57 y/o female who reports to PT following left femur ORIF on 02/24/23. Pt denies complications following surgery, falls or paresthesia . Pt reports she went to [facility] for a short stay and then went to [facility] for rehabilitation. Pt reports she just finished home health PT/OT last that she participated in for about a month with good tolerance. Pt reports she has been continuing her exercises independently since. Pt had a femur radiograph performed at [facility] during last followup visit with MD on 05/21 showing Healing comminuted displaced fracture of the distal femoral metadiaphysis. Pt is left toe -touch partial WB. Pt reports she is using a RW or rollator at baseline and only uses a wheelchair for long distances such as to go to the doctors office. Pt reports she has 26 stairs total with 1 HR at her home so she is currently staying at her [id number] where she doesn't have to go up stairs. Pt reports she is sponge bathing currently and has to sit to perform cooking/ laundry activities. Pt reports she returns to Dr. Herrera on 04/23. Occupation: [employer] Medical History: Type II Diabetes, tibia fracture in 2019 Chief Complaint Pain,Stiff,Swelling,Weakness Symptom Type Ache Symptoms Relieved By Rest/Positioning Symptoms Aggravate
== END 2022-08-20 09:05 | disposition home or self-care (01) ==
LOC: PT 09:00
PROVIDERS: PCP Family Medicine; Visit Provider Orthopaedic Surgery
DX: S72.402A Unspecified fracture of lower end of left femur, initial encounter for closed fracture (principal)
CPT/HCPCS: 97010; 97014; 97110; 97112; 97116; 97163; 97164; 97530; G0283

== ENCOUNTER → 2022-09-24 13:23 | Outpatient (CLI) | payer BC, OTHER, SELFPAY ==
--- NOTE | 2022-09-24 13:26 | XR_ITS ---
FINAL REPORT CLINICAL HISTORY: Lt femur fx from 02/19, sx 02/25. F/U COMPARISON: 07/28/2022 FINDINGS: LEFT FEMUR SERIES Four views of the left femur were obtained. There are extensive postoperative changes of an ORIF of the distal femur. There is likely incomplete bony union. There is lucency surrounding the proximal portions of the cortical plate, which may indicate hardware loosening. The proximal femur is intact. 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 Reviewed, Interpreted and Dictated by Lissa Machado MD Transcribed by John Martini Authenticated and [facility]
== END ==
PROVIDERS: PCP Family Medicine; Visit Provider Orthopaedic Surgery
DX: M79.605 Pain in left leg (principal); S72.402A Unspecified fracture of lower end of left femur, initial encounter for closed fracture
CPT/HCPCS: 73552

== ENCOUNTER → 2022-10-27 14:00 | Outpatient (CLI) | payer OTHER, SELFPAY ==
--- NOTE | 2022-10-27 13:41 | XR_ITS ---
FINAL REPORT CLINICAL HISTORY: Left femur fracture follow-up COMPARISON: 09/24/2022 FINDINGS: Two views of the left femur were obtained. There is sideplate and screws securing marked healing and healed fracture deformity of the distal femoral metadiaphysis. There has been interval increased callus formation consistent with progressive healing. The joint spaces are well preserved. There is no acute soft tissue abnormality. Sideplate and screws are seen securing the proximal tibia. IMPRESSION: Postsurgical changes with interval progressive healing. Reviewed, Interpreted and Dictated by Nahid Wright MD Transcribed by Radha Lainez Authenticated and [facility]
== END ==
PROVIDERS: PCP Family Medicine; Visit Provider Orthopaedic Surgery
DX: S72.402A Unspecified fracture of lower end of left femur, initial encounter for closed fracture (principal)
CPT/HCPCS: 73552

== ENCOUNTER → 2022-11-24 13:29 | Outpatient (CLI) | payer OTHER, SELFPAY ==
--- NOTE | 2022-11-24 13:34 | XR_ITS ---
FINAL REPORT CLINICAL HISTORY: lt femur pain, surgery in jan, COMPARISON: 10/27/2022 FINDINGS: Two views of the left femur were obtained. Patient is status post ORIF of the left femur. The appearance of the hardware and distal left femur fracture are unchanged. No new abnormality is identified. There is no acute soft tissue abnormality. IMPRESSION: Postsurgical changes as above. Reviewed, Interpreted and Dictated by Jo-Ann Barragan MD Transcribed by Ashlie Feldman Authenticated and [facility]
== END ==
PROVIDERS: PCP Family Medicine; Visit Provider Orthopaedic Surgery
DX: S72.402D Unspecified fracture of lower end of left femur, subsequent encounter for closed fracture with routine healing (principal); Y99.9 Unspecified external cause status
CPT/HCPCS: 73552

== ENCOUNTER → 2022-12-22 12:54 | Outpatient (CLI) | payer OTHER, SELFPAY ==
--- NOTE | 2022-12-22 12:58 | XR_ITS ---
FINAL REPORT TECHNIQUE: Left femur 4 views CLINICAL HISTORY: fracture COMPARISON: 11/24/2022 FINDINGS: LEFT FEMUR: The patient is postop repair of a distal femoral fracture and distal tibial fracture with plates and screws bridging the femoral fracture just above the knee and the tibial fracture just below the knee. On lateral views there is near complete versus complete nonunion, particularly of the femoral fracture, with lucency surrounding the screws in the distal femur consistent with hardware loosening. No significant change in positioning of the fracture fragments is identified since the prior study of October. IMPRESSION: Near complete versus complete nonunion particularly of the femoral fracture as described. Reviewed, Interpreted and Dictated by Sreehdar Kong III, MD Transcribed by Fely Mcdonough Authenticated and [facility]
== END ==
PROVIDERS: PCP Family Medicine; Visit Provider Orthopaedic Surgery
DX: S72.402D Unspecified fracture of lower end of left femur, subsequent encounter for closed fracture with routine healing (principal); Y99.9 Unspecified external cause status
CPT/HCPCS: 73552

== ENCOUNTER → 2022-12-29 14:14 | Outpatient (CLI) | payer OTHER, SELFPAY ==
--- NOTE | 2022-12-29 14:21 | CT_ITS ---
FINAL REPORT TECHNIQUE: Thin section axial CT images with coronal and sagittal reformats were performed. This study was performed with techniques to keep radiation doses as low as reasonably achievable (ALARA). Individualized dose reduction techniques using automated exposure control or adjustment of mA and/or kV according to the patient''s size were employed. CLINICAL HISTORY: Lt femur fracture COMPARISON: October 27, 2022 radiographs FINDINGS: Again noted is a comminuted fracture involving the distal femur. Postoperative changes are seen from open reduction and internal fixation with a screw plate and multiple screws. There is lack of bony fusion involving a dominant oblique fracture line involving the distal femoral metaphysis. These findings are best visualized on the coronal and sagittal reformatted images. There is partial bony fusion of fracture lines involving the intercondylar region of the distal femur, but multiple fracture lines are still visible. There is approximately 20 degrees of varus angulation of the distal femur in relation to the proximal femur. A fracture is also seen of the proximal tibia with postoperative changes from open reduction and internal fixation. There is bony fusion of the fracture in this region. No soft tissue mass or abnormal fluid collection is seen. The musculature is intact. 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 Union of the proximal tibia fracture. Authenticated and [facility]
== END ==
PROVIDERS: PCP Family Medicine; Visit Provider Orthopaedic Surgery
DX: S72.402A Unspecified fracture of lower end of left femur, initial encounter for closed fracture (principal)
CPT/HCPCS: 73700

== ENCOUNTER 2023-03-04 09:29 | Outpatient (CLI) | payer OTHER, SELFPAY ==
--- NOTE | 2023-03-04 09:37 | XR_ITS ---
FINAL REPORT CLINICAL HISTORY: Left Femur fx COMPARISON: 12/22/2022 FINDINGS: Left femur Two views were obtained. There are postoperative changes in the distal femur and proximal tibia. There are chronic fractures in this region. The bony alignment is stable. There is at least partial nonunion of the distal femur fracture fragments. The appearance is stable since prior. IMPRESSION: Chronic fractures with postoperative changes, stable since prior. Reviewed, Interpreted and Dictated by Sreedhar Kong III, MD Transcribed by Ashlie Feldman Authenticated and [facility]
== END 2023-03-04 23:59 ==
LOC: RAD 09:33
PROVIDERS: PCP Family Medicine; Visit Provider Orthopaedic Surgery
DX: S72.402K Unspecified fracture of lower end of left femur, subsequent encounter for closed fracture with nonunion (principal)
CPT/HCPCS: 73552

== ENCOUNTER 2023-04-15 09:30 | Outpatient (CLI) | payer OTHER, SELFPAY ==
--- NOTE | 2023-04-15 09:34 | XR_ITS ---
FINAL REPORT CLINICAL HISTORY: left femur fx COMPARISON: 03/04/2023 FINDINGS: Two views of the left femur were obtained. There is a fracture of the distal femur with postoperative changes from ORIF with screw plate and multiple screws present. There is posterior displacement of the distal fracture fragment with overlap. Bony alignment has not significantly changed. There is also postoperative change of the proximal tibia. The joint spaces are preserved. There is no acute soft tissue abnormality. IMPRESSION: Postoperative changes as above. Reviewed, Interpreted and Dictated by Sreedhar Kong III, MD Transcribed by Radha Lainez Authenticated and [facility]
== END 2023-04-15 23:59 ==
LOC: RAD 09:30
PROVIDERS: PCP Family Medicine; Visit Provider Orthopaedic Surgery
DX: S72.402K Unspecified fracture of lower end of left femur, subsequent encounter for closed fracture with nonunion (principal)
CPT/HCPCS: 73552

== ENCOUNTER 2023-05-27 10:13 | Outpatient (CLI) | payer OTHER, SELFPAY ==
--- NOTE | 2023-05-27 10:18 | XR_ITS ---
FINAL REPORT CLINICAL HISTORY: Lt Femur Fx COMPARISON: 04/15/2023 FINDINGS: LEFT FEMUR: The patient has undergone prior internal fixation of a comminuted fracture of the distal femoral metaphysis with a plate and screws. The proximal side plate appears laterally and anteriorly displaced, although the positioning is stable when compared to the prior film of April. There are also a sideplate and screws present in the proximal tibial metaphyseal region, also stable when compared to the prior exam. Moderate medial compartment narrowing of the knee is present. The fracture line of the distal femur is still visualized on the lateral views, similar to the previous exam. IMPRESSION: Internal fixation of fractures of the distal femur and proximal tibia as described, essentially unchanged since the prior exam of April 15. Reviewed, Interpreted and Dictated by Nahid Wright MD Transcribed by Fely Mcdonough Authenticated and [facility]
== END 2023-05-27 23:59 ==
LOC: RAD 10:13
PROVIDERS: PCP Family Medicine; Visit Provider Orthopaedic Surgery
DX: S72.402K Unspecified fracture of lower end of left femur, subsequent encounter for closed fracture with nonunion (principal)
CPT/HCPCS: 73552

== ENCOUNTER 2023-06-28 14:23 | Outpatient (CLI) | payer OTHER, SELFPAY ==
--- NOTE | 2023-06-28 | XR_ITS ---
FINAL REPORT TECHNIQUE: CT tomogram, supine position CLINICAL HISTORY: bone length discrepancy COMPARISON: None FINDINGS: BONE LENGTH STUDY: The measurements are based on a CT topogram with the patient supine. Length of the right lower extremity from the hip to the ankle measures 79 cm. Length of the left lower extremity from the hip to the ankle measures 75.6 cm Length of the right femur measures 44 cm. Length of the left femur measures 42 cm. Length of the right tibia measures 34 cm. Length of the left tibia measures 34 cm However these measurements are questionable due to supine positioning and partial flexion of the left knee. It is uncertain how much the discrepancies measured above are due to these variables or true bone length discrepancy. IMPRESSION: Bone length discrepancies as above, with multi factorial limitations as discussed. Reviewed, Interpreted and Dictated by Lissa Machado MD Transcribed by Fely Mcdonough Authenticated and [facility]
== END 2023-06-28 23:59 | disposition home or self-care (01) ==
LOC: RAD 14:24
PROVIDERS: PCP Family Medicine; Visit Provider Orthopaedic Surgery
DX: M79.662 Pain in left lower leg (principal); S72.402K Unspecified fracture of lower end of left femur, subsequent encounter for closed fracture with nonunion
CPT/HCPCS: 77073

== ENCOUNTER 2023-10-21 10:00 | Outpatient (RCR) | payer OTHER, SELFPAY ==
--- NOTE | 2023-06-01 11:17 | HMH.PTOPEV ---
PT Outpatient Evaluation Rehab PT Outpatient Evaluation Start: 06/01/23 10:47 Freq: Status: Active Protocol: Document 06/01/23 10:47 MADIHAORIN (Rec: 06/01/23 11:16 HELENE [id number]) E-signed By Venu White, PT Outpatient Therapy Subjective History Subjective History Patient is a 58 year old female presenting to outpatient PT with reports of L knee pain. Patient experienced a fall at home after slipping on ice resulting in L femur fracture. Patient underwent ORIF for L femur 01/2022. Comorbidities include hx of diabetes, HTN and elevated BMI. New diagnosis of cancer in past 12 No months? Chief Complaint Pain,Stiff,Swelling,Weakness Symptom Type Sharp Symptoms Relieved By Rest/Positioning,Heat,Ice, Prescription Meds Symptoms Aggravated By Standing,Physical Activity, Walking Prior Functional Limitations None Current Functional Limitations Housework,Standing,Walking, Stairs,Balance Symptom Description Intermittent Level of pain today (0-10) 0 Pain scale - at its best (0-10) 0 Pain scale - at its worst (0-10) 9 Hip/Knee Eval Gait Observation General Gait Pattern Observation Antalgic Gait,Decrease Weight Bear (L) Palpation Tenderness left Knee Palpation Finding Tenderness Knee Palpation Overall Comment L Patellar tendon/ML joint lines 3/4 MMT Hip Flexion Strength Grade 4 Good Hip Abduction Strength Grade 4- Good- Hip Adduction Strength Grade 4 Good Hip Extension Strength Grade 3+ Fair+ Hip External Rotation Strength Grade 3+ Fair+ Hip Internal Rotation Strength Grade 3+ Fair+ Knee Extension Strength Grade 4- Good- Knee Flexion Strength Grade 4 Good ROM Hip ROM Reason Not Measured Within Functional Limits Knee Extension Active Range of Motion ( -6 degrees) Knee Flexion Active Range of Motion ( 79 degrees) Lower Extremity Functional Index Activities Today, do you or would you have any difficulty at all with: a.Any of your usual work, housework or Moderate difficulty school activities b. Your usual hobbies, recreational or Moderate difficulty sporting activities c. Getting into or out of the bath Moderate difficulty d. Walking between rooms A little bit of difficulty e. Putting on your shoes or socks A little bit of difficulty f. Squatting A little bit of difficulty g. Lifting an object, like a bag of Quite a bit of difficulty groceries from the floor h. Performing light activities around A little bit of difficulty your home i. Performing heavy activities around A little bit of difficulty your home j. Getting into or out of a car Quite a bit of difficulty k. Walking 2 blocks No difficulty l. Walking a mile Quite a bit of difficulty m. Going up or down 10 stairs (about 1 Quite a bit of difficulty flight of stairs) n. Standing for 1 hour Quite a bit of difficulty o. Sitting for 1 hour Extreme difficulty or unable to perform activity p. Running on even ground Extreme difficulty or unable to perform activity q. Running on uneven ground Extreme difficulty or unable to perform activity r. Making sharp turns while running fast Extreme difficulty or unable to perform activity s. Hopping Extreme difficulty or unable to perform activity t. Rolling over in bed No difficulty LEFI Score Lower Extremity Functional Index Score 34 Outpatient Therapy Assessment Impairments Problems/Impairmments Palpation Tenderness,Impaired Range of Motion,Impaired Strength,Impaired Gait Pattern ,Impaired Walking,Impaired Standing,Impaired Household Care,Impaired Stair Climbing, Impaired Incline Stepping, Impaired Stepping on Uneven Surface,Impaired Squatting, Impaired Balance,Subjective C/ O Pain Prognosis Rehab Potential Good Clinical Impression Consistent with Diagnosis Yes Short Term Goals Number of Weeks 2 Decrease Subjective C/O Pain Yes: 5/10 at worst Patient to be Ind w/ HEP Yes Analysis Manager Goals Number of Weeks 4-6 Decreased Palpation Tenderness Yes: 1/4 Increase Range of Motion Yes: 0-120 Increase Strength Yes: 5/5 LLE grossly Increase Ability to Walk Yes: 30 min without difficulty Increase Ability to Stand Yes: Improve Ability For Household Care Yes Improve Ability to Climb Stairs Yes: 1 flight without difficulty up/down Improve LEFI Score Yes: >60 Decrease Subjective C/O Pain Yes: 2/10 at worst Outpatient Therapy Plan of Care Treatment Plan May Include Therapeutic Exercise Including Home Yes Exercise Program Manual Therapy Techniques Yes Neuromuscular Re-education Yes Therapeutic Activities to Return to Yes Previous Functional/Work Level Gait Training Yes ADL/Self Care Education Yes Dry Needling Yes Thermal Modalities Yes Electrical Stimulation Yes Ultrasound/Phonophoresis Yes Iontophoresis Yes Orthotics/Bracing/Splinting Yes Vasopneumatic Compression Pump Yes Massage Yes Manual Lymphatic Drainage Yes Eval/Re-Eval Yes Aquatic Therapy Yes Frequency Times per week 2 Duration Number of Weeks 4-6 Addendums This patient is a candidate for social No or vocational rehab? Patient/Guardian verbally acknowledges Yes understanding of treatment program and consents to further treatment? Patient/Guardian verbally acknowledges Yes understanding of diagnosis, prognosis and goals for treatment? Eval Complexity PT Charges 46216 - Moderate Complexity Shoulder/Elbow Eval Shoulder Objective Measurements Elbow Objective Measurements PHYSICIAN CERTIFICATION: I certify the specified therapy services for Bhavani Camargo are required, authorized, and reviewed every 30 days.
--- NOTE | 2023-07-01 11:04 | HMH.RHREAS ---
Rehab Reassessment Rehab OP Re-assessment Start: 06/01/23 10:47 Freq: Status: Active Protocol: Document 07/01/23 10:35 HELENE (Rec: 07/01/23 11:02 HELENE [id number]) E-signed By Venu White, PT Lower Extremity Functional Index Activities Today, do you or would you have any difficulty at all with: a.Any of your usual work, housework or Moderate difficulty school activities b. Your usual hobbies, recreational or A little bit of difficulty sporting activities c. Getting into or out of the bath Moderate difficulty d. Walking between rooms No difficulty e. Putting on your shoes or socks Moderate difficulty f. Squatting Quite a bit of difficulty g. Lifting an object, like a bag of No difficulty groceries from the floor h. Performing light activities around A little bit of difficulty your home i. Performing heavy activities around Extreme difficulty or unable your home to perform activity j. Getting into or out of a car A little bit of difficulty k. Walking 2 blocks Moderate difficulty l. Walking a mile Quite a bit of difficulty m. Going up or down 10 stairs (about 1 Moderate difficulty flight of stairs) n. Standing for 1 hour Quite a bit of difficulty o. Sitting for 1 hour No difficulty p. Running on even ground Extreme difficulty or unable to perform activity q. Running on uneven ground Extreme difficulty or unable to perform activity r. Making sharp turns while running fast Extreme difficulty or unable to perform activity s. Hopping Extreme difficulty or unable to perform activity t. Rolling over in bed No difficulty LEFI Score Lower Extremity Functional Index Score 38 Rehab Re-assessment Subjective Subjective Patient reports overall 40% improvement since start of care. Objective Objective Notes L knee AROM: flx 89; ext -4 MMT: L hip/thigh mm 4+/5 TTP: L later/inferior border 3 /4 Neuro: WNL Assessment Progress Assessment Progressing as Expected Assessment Notes Patient would benefit from continuing with skilled PT interventions in order to address functional limitatations with all standing/ambulatory activities . Patient continues to require RW for all community outings. No AD or SPC with ambulation at home. Patient goals met STG 2 Goals Not Met All others Revised Goals NA Plan Plan Continue with current POC. Frequency of Therapy 2x/week Duration of therapy 4 Time and Billing Re-Eval Time 14 Re-Eval Billing Units 1 PHYSICIAN CERTIFICATION: I certify the specified therapy services for Bhavani Camargo are required, authorized, and reviewed every 30 days.
--- NOTE | 2023-07-29 08:17 | HMH.RHREAS ---
Rehab Reassessment Rehab OP Re-assessment Start: 06/01/23 10:47 Freq: Status: Active Protocol: Document 07/29/23 08:12 HELENE (Rec: 07/29/23 08:16 HELENE [id number]) E-signed By Venu White PT Lower Extremity Functional Index Activities Today, do you or would you have any difficulty at all with: a.Any of your usual work, housework or Moderate difficulty school activities b. Your usual hobbies, recreational or A little bit of difficulty sporting activities c. Getting into or out of the bath Moderate difficulty d. Walking between rooms No difficulty e. Putting on your shoes or socks Moderate difficulty f. Squatting Quite a bit of difficulty g. Lifting an object, like a bag of No difficulty groceries from the floor h. Performing light activities around A little bit of difficulty your home i. Performing heavy activities around Extreme difficulty or unable your home to perform activity j. Getting into or out of a car A little bit of difficulty k. Walking 2 blocks Moderate difficulty l. Walking a mile Quite a bit of difficulty m. Going up or down 10 stairs (about 1 Moderate difficulty flight of stairs) n. Standing for 1 hour Quite a bit of difficulty o. Sitting for 1 hour No difficulty p. Running on even ground Extreme difficulty or unable to perform activity q. Running on uneven ground Extreme difficulty or unable to perform activity r. Making sharp turns while running fast Extreme difficulty or unable to perform activity s. Hopping Extreme difficulty or unable to perform activity t. Rolling over in bed No difficulty LEFI Score Lower Extremity Functional Index Score 38 Rehab Re-assessment Subjective Subjective Patient reports overall 60% improvement since start of care. Objective Objective Notes L knee AROM: flx 89; ext -2 MMT: L hip/thigh mm 4+/5 TTP: L later/inferior border of patella 2/4 Neuro: WNL Assessment Progress Assessment Progressing as Expected Assessment Notes activities. Patient continues to require RW for all community outings. No AD or SPC with ambulation at home. Patient goals met STG 2 Goals Not Met All others Revised Goals NA Plan Plan Continue with current POC. Frequency of Therapy 2x/week Duration of therapy 4 Time and Billing Re-Eval Time 15 Re-Eval Billing Units 1 PHYSICIAN CERTIFICATION: I certify the specified therapy services for Bhavani Raman are required, authorized, and reviewed every 30 days.
--- NOTE | 2023-08-31 11:11 | HMH.RHREAS ---
Rehab Reassessment Rehab OP Re-assessment Start: 06/01/23 10:47 Freq: Status: Active Protocol: Document 08/31/23 10:51 HELENE (Rec: 08/31/23 11:10 HELENE [id number]) E-signed By Venu White, PT Lower Extremity Functional Index Activities Today, do you or would you have any difficulty at all with: a.Any of your usual work, housework or Moderate difficulty school activities b. Your usual hobbies, recreational or Moderate difficulty sporting activities c. Getting into or out of the bath A little bit of difficulty d. Walking between rooms A little bit of difficulty e. Putting on your shoes or socks No difficulty f. Squatting Moderate difficulty g. Lifting an object, like a bag of A little bit of difficulty groceries from the floor h. Performing light activities around A little bit of difficulty your home i. Performing heavy activities around Extreme difficulty or unable your home to perform activity j. Getting into or out of a car Moderate difficulty k. Walking 2 blocks Moderate difficulty l. Walking a mile Extreme difficulty or unable to perform activity m. Going up or down 10 stairs (about 1 Moderate difficulty flight of stairs) n. Standing for 1 hour Quite a bit of difficulty o. Sitting for 1 hour No difficulty p. Running on even ground Extreme difficulty or unable to perform activity q. Running on uneven ground Extreme difficulty or unable to perform activity r. Making sharp turns while running fast Extreme difficulty or unable to perform activity s. Hopping Extreme difficulty or unable to perform activity t. Rolling over in bed A little bit of difficulty LEFI Score Lower Extremity Functional Index Score 36 Rehab Re-assessment Subjective Subjective Patient reports 60% improvement since start of care. Objective Objective Notes L knee AROM: flx 98; ext -2 MMT: L hip/thigh mm 4+/5 TTP: L later/inferior border of patella 2/4 Neuro: WNL [ End ] Assessment Progress Assessment Progressing as Expected Assessment Notes Patient would benefit from continuing with skilled PT services in order to address functional limitations with all standing/ambulatory activities. Patient goals met STG's Goals Not Met LTG's Revised Goals NA Plan Plan Continue with current POC. Frequency of Therapy 2x/week Duration of therapy 4 Time and Billing Re-Eval Time 15 Re-Eval Billing Units 1 PHYSICIAN CERTIFICATION: I certify the specified therapy services for Bhavani Raman are required, authorized, and reviewed every 30 days.
--- NOTE | 2023-09-29 17:35 | HMH.RHREAS ---
Rehab Reassessment Rehab OP Re-assessment Start: 06/01/23 10:47 Freq: Status: Active Protocol: Document 09/29/23 15:15 HELENE (Rec: 09/29/23 17:35 HELENE [id number]) E-signed By Venu White, PT Lower Extremity Functional Index Activities Today, do you or would you have any difficulty at all with: a.Any of your usual work, housework or Moderate difficulty school activities b. Your usual hobbies, recreational or Moderate difficulty sporting activities c. Getting into or out of the bath Moderate difficulty d. Walking between rooms A little bit of difficulty e. Putting on your shoes or socks A little bit of difficulty f. Squatting Quite a bit of difficulty g. Lifting an object, like a bag of Moderate difficulty groceries from the floor h. Performing light activities around Moderate difficulty your home i. Performing heavy activities around Extreme difficulty or unable your home to perform activity j. Getting into or out of a car A little bit of difficulty k. Walking 2 blocks Extreme difficulty or unable to perform activity l. Walking a mile Extreme difficulty or unable to perform activity m. Going up or down 10 stairs (about 1 Moderate difficulty flight of stairs) n. Standing for 1 hour Quite a bit of difficulty o. Sitting for 1 hour No difficulty p. Running on even ground Extreme difficulty or unable to perform activity q. Running on uneven ground Extreme difficulty or unable to perform activity r. Making sharp turns while running fast Extreme difficulty or unable to perform activity s. Hopping Extreme difficulty or unable to perform activity t. Rolling over in bed A little bit of difficulty LEFI Score Lower Extremity Functional Index Score 30 Rehab Re-assessment Subjective Subjective Patient reports 60% improvement since start of care. I was feeling better, but I've been more sore this week from doing more on my feet. Objective Objective Notes L knee AROM: flx 96; ext -2 MMT: L hip/thigh mm 4+/5 TTP: L later/inferior border of patella 3/4 Neuro: WNL Assessment Progress Assessment Slower Than Expected Assessment Notes Patient would benefit from continuing with skilled PT services in order to address functional limitations with all standing/ambulatory activities. PT suggested return to MD for follow-up regarding further surgical options secondary to lack of progress to date. Discussed prognosis and timeline since initial injury regarding further options for Rx. Patient was open to consider TKA/surgical consult. [ End ] Patient goals met STG's Goals Not Met LTG's Revised Goals NA Plan Plan Continue with current POC. Frequency of Therapy 2x/week Duration of therapy 4 weeks Time and Billing Re-Eval Time 16 Re-Eval Billing Units 1 PHYSICIAN CERTIFICATION: I certify the specified therapy services for Bhavani Camargo are required, authorized, and reviewed every 30 days.
== END 2023-10-21 10:05 | disposition home or self-care (01) ==
LOC: PT 10:00
PROVIDERS: Visit Provider Orthopaedic Surgery
DX: M79.662 Pain in left lower leg (principal); S72.402K Unspecified fracture of lower end of left femur, subsequent encounter for closed fracture with nonunion
CPT/HCPCS: 97010; 97014; 97110; 97112; 97116; 97140; 97163; 97164; 97530; G0283

== ENCOUNTER 2024-01-06 13:33 | Outpatient (CLI) | payer OTHER, SELFPAY ==
--- NOTE | 2024-01-06 13:44 | XR_ITS ---
FINAL REPORT TECHNIQUE: 4 views left femur CLINICAL HISTORY: .jan 2022 surgery COMPARISON: 05/27/2023 FINDINGS: LEFT FEMUR: There is a chronic fracture of the distal femur with ORIF using an lateral orthopedic plate and numerous screws. There is also a chronic fracture of the proximal tibia, also with a lateral orthopedic plate and screws. The overall appearance is stable when compared to the prior exam of April. IMPRESSION: Chronic fractures of the distal femur and proximal tibia as described, stable since the prior exam of April 2023. Authenticated and [facility]N
== END 2024-01-06 23:59 | disposition home or self-care (01) ==
PROVIDERS: PCP Nurse Practitioner; Visit Provider Orthopaedic Surgery
DX: S72.492 Other fracture of lower end of left femur (principal)
CPT/HCPCS: 73552

== ENCOUNTER 2024-05-03 08:48 | Outpatient (CLI) | payer BC, SELFPAY ==
--- NOTE | 2024-05-03 08:52 | XR_ITS ---
FINAL REPORT CLINICAL HISTORY: SCREENING COMPARISON: none FINDINGS: Using L1-4, the bone mineral density of the spine is 0.917 g/cm2, corresponding to T-score of -1.2, consistent with osteopenia. Using the left hip, the bone mineral density of the femoral neck is 0.521 g/cm2, corresponding to a T-score of -3.0, consistent with osteoporosis. Using the right hip, the bone mineral density of the femoral neck is 0.752 g/cm2, corresponding to a T-score of -0.9, within normal limits. FRAX not reported because some T-score at or below -2.5. NOTE: T-score: Standard deviation compared with peak bone mass of young adult mean. *Following the recommendations of the International Society of Bone densitometry, classification of hip BMD is based on the lower of two T-scores; total hip or femoral neck. IMPRESSION: Bone mineral density demonstrates mixed results as detailed above. Reviewed, Interpreted and Dictated by Lissa Machado MD Transcribed by Radha Lainez Authenticated and [facility]
== END 2024-05-03 23:59 | disposition home or self-care (01) ==
LOC: RAD 08:49
PROVIDERS: PCP Nurse Practitioner; Visit Provider Nurse Practitioner
DX: Z13.820 Encounter for screening for osteoporosis (principal); M85.80 Other specified disorders of bone density and structure, unspecified site
CPT/HCPCS: 77080

== ENCOUNTER 2024-09-20 10:33 | Outpatient (CLI) | payer MEDICARE, SELFPAY ==
--- NOTE | 2024-09-20 10:36 | MM_ITS ---
PROCEDURE INFORMATION: Exam: Bilateral Screening 3D Mammography Exam date and time: 09/20/2024 10:51 AM Age: 59 years old Clinical indication: Screening examination TECHNIQUE: Imaging protocol: Bilateral Screening tomosynthesis and 2D mammography including computer-aided detection (CAD) when performed. COMPARISON: MOBILE DIGITAL SCREEN BILAT* 07/21/2016 9:04 AM FINDINGS: MAMMOGRAPHY: Breast composition: The breasts are almost entirely fatty. Mass: None. Architectural distortion: None. Calcifications: No suspicious calcifications. Asymmetric density: None. Skin thickening: None. Axillary adenopathy: None. IMPRESSION: No mammographic evidence of malignancy. Annual screening is recommended unless otherwise clinically indicated. ASSESSMENT: BI-RADS Category 1: Negative.
--- OUTSIDE RECORDS SUMMARY | 2024-09-20 10:36 | XMS_ITS | Clinical Summary ---
Author Organization [facility] Address [address] [place] [address], [address] [place] [id number] Care Team Providers Care Director Internal Control Name Role Phone Unavailable Primary Care Provider Unavailabl e Social History Tobacco Use Types Packs/Day Years Used Date Smoking Tobacco: Never Assessed Comments Unknown Sex and Gender Information Value Date Recorded Sex Assigned at Not on file Legal Sex Female 8:00 AM EDT Gender Identity Not on file Sexual Orientation Not on file Plan of Treatment Not on file
--- OUTSIDE RECORDS SUMMARY | 2024-09-20 10:36 | XMS_ITS ---
Author Organization Unknown Problems Date Problem Result OnSetDate Icd10 SnomedCode Severity Cu stom 10/16/2021 00:00:00 Gastroesophageal reflux disease without esophagitis K21.9 [id number] 10/16/2021 00:00:00 Feeling tired R53.83 [id number] 04/29/2023 00:00:00 Vitamin D deficiency E55.9 04/29/2023 00:00:00 Arthritis M19.90 04/29/2023 00:00:00 Hyperthyroidism E05.90
== END 2024-09-20 23:59 | disposition home or self-care (01) ==
LOC: RAD 10:34
PROVIDERS: PCP Nurse Practitioner; Visit Provider Nurse Practitioner
DX: Z12.31 Encounter for screening mammogram for malignant neoplasm of breast (principal)
CPT/HCPCS: 77063; 77067

== ENCOUNTER 2024-11-27 08:00 | Outpatient (RCR) | payer MEDICARE, SELFPAY | END 2024-11-27 23:59 | disposition home or self-care (01) | LOC: PT 08:00 | PROVIDERS: PCP Nurse Practitioner; Visit Provider Nurse Practitioner | DX: M25.562 Pain in left knee (principal) | CPT/HCPCS: 97110; 97162; 97530 ==

== ENCOUNTER 2024-12-29 08:00 | Outpatient (RCR) | payer MEDICARE, SELFPAY | END 2024-12-29 23:59 | disposition home or self-care (01) | LOC: PT 08:00 | PROVIDERS: PCP Nurse Practitioner; Visit Provider Nurse Practitioner | DX: M25.562 Pain in left knee (principal) | CPT/HCPCS: 97110; 97530 ==

== ENCOUNTER 2025-01-19 13:00 | Outpatient (RCR) | payer MEDICARE, SELFPAY | END 2025-01-19 23:59 | disposition home or self-care (01) | LOC: PT 13:00 | PROVIDERS: PCP Nurse Practitioner; Visit Provider Nurse Practitioner | DX: M25.562 Pain in left knee (principal) | CPT/HCPCS: 97110; 97530 ==

== ENCOUNTER 2025-01-29 07:43 | Outpatient (RCR) | payer MEDICARE, SELFPAY | END 2025-01-29 23:59 | disposition home or self-care (01) | LOC: PT 07:43 | PROVIDERS: PCP Nurse Practitioner; Visit Provider Nurse Practitioner | DX: M25.562 Pain in left knee (principal) | CPT/HCPCS: 97110 ==